=== PATIENT | female | born 1950 | race African-American/Black ===

== ENCOUNTER 2018-09-29 08:37 | Inpatient (IN) | payer MEDICARE, MEDICAID ==
[~2018-09-29] VITALS: Ht 167.6 cm; Wt 72.6 kg
[2018-09-29 08:40] VITALS: BP 168/90
--- NOTE | 2018-09-29 09:07 | Emergency Room Report ---
History of Present Illness General Chief Complaint: Lower Extremity Injury Source: Patient, EMS Present Illness HPI Patient present with complaints of pain to the right hip Reports that she fell 2 days ago at [facility] Has not been seen for this fall Pain is worse with standing or walking Denies any chest pain or shortness of breath Denies any fevers or chills pain is localized to the right side Denies any rash Allergies: Coded Allergies: AMOXICILLIN (Unverified Allergy, Unknown, 09/29/18) Patient History Past Medical History: see triage record Pertinent Family History: none Reviewed Nursing Documentation: PMH: Agreed; PSxH: Agreed Nursing Documentation-PMH Hx Hypertension: Yes History Of Psychiatric Problem: Yes Review of Systems All Other Systems: negative except mentioned in HPI Physical Exam Vital Signs Date Time Temp Pulse Resp B/P (MAP) Pulse Ox O2 Delivery O2 Flow Rate FiO2 09/29/18 08:32 97.9 98 18 168/90 99 Room Air Sp02 EP Interpretation: reviewed, normal General Appearance: well appearing, no apparent distress Head: normocephalic, atraumatic Eyes: bilateral eye PERRL, bilateral eye EOMI ENT: hearing grossly normal, normal pharynx, TMs + canals normal, uvula midline Neck: full range of motion, supple, no meningismus, no bony tend Respiratory: lungs clear, normal breath sounds, no rhonchi, no respiratory distress, no retraction, no accessory muscle use Cardiovascular #1: normal peripheral pulses, regular rate, rhythm, no edema, no gallop, no JVD, no murmur Gastrointestinal: normal bowel sounds, non tender, soft, no mass, no organomegaly, non-distended, no guarding, no hernia, no pulsatile mass, no rebound Genitourinary: no CVA tenderness Musculoskeletal: other - Tender on palpation of the right inguinal region Neurologic: oriented x3, responsive, color control operator III-XII nml as tested, sensory intact Psychiatric: mood/affect normal Skin: normal color, no rash, warm/dry, palpation normal Lymphatic: normal inspection, no adenopathy Medical Decision Making Diagnostic Impression: Primary Impression: Hip fracture ER Course Given the patient's history and exam initially x-ray imaging is obtained Does show evidence of right-sided fracture Patient is not able to bear weight Given her age her comorbidities and the discomfort given the acute fracture Orthopedics is consulted Did not feel the patient will require any emergent surgical intervention however patient will be admitted for further care and therapy Labs Test 09/29/18 10:36 White Blood Count 10.8 K/UL (4.8-10.8) Red Blood Count 5.18 M/UL (4.20-5.40) Hemoglobin 15.8 G/DL (12.0-16.0) Hematocrit 48.6 % (37.0-47.0) Mean Corpuscular Volume 94 FL (80-99) Mean Corpuscular Hemoglobin 30.5 PG (27.0-31.0) Mean Corpuscular Hemoglobin Concent 32.5 G/DL (32.0-36.0) Red Cell Distribution Width 12.1 % (11.6-14.8) Platelet Count 191 K/UL (150-450) Mean Platelet Volume 8.9 FL (6.5-10.1) Neutrophils (%) (Auto) 75.6 % (45.0-75.0) Lymphocytes (%) (Auto) 16.9 % (20.0-45.0) Monocytes (%) (Auto) 6.3 % (1.0-10.0) Eosinophils (%) (Auto) 0.7 % (0.0-3.0) Basophils (%) (Auto) 0.5 % (0.0-2.0) Prothrombin Time 10.4 SEC (9.30-11.50) Prothromb Time International Ratio 1.0 (0.9-1.1) Activated Partial Thromboplast Time 27 SEC (23-33) Sodium Level 140 MMOL/L (136-145) Potassium Level 4.1 MMOL/L (3.5-5.1) Chloride Level 102 MMOL/L (98-107) Carbon Dioxide Level 25 MMOL/L (21-32) Anion Gap 14 mmol/L (5-15) Blood Urea Nitrogen 20 mg/dL (7-18) Creatinine 1.0 MG/DL (0.55-1.30) Estimat Glomerular Filtration Rate > 60 mL/min (>60) Glucose Level 339 MG/DL (74-106) Calcium Level 9.5 MG/DL (8.5-10.1) Total Bilirubin 0.7 MG/DL (0.2-1.0) Aspartate Amino Transf (AST/SGOT) 28 U/L (15-37) Alanine Aminotransferase (ALT/SGPT) 41 U/L (12-78) Alkaline Phosphatase 119 U/L (46-116) Total Creatine Kinase 162 U/L (26-308) Creatine Kinase MB 2.6 NG/ML (0.0-3.6) Creatine Kinase MB Relative Index 1.6 Troponin I 0.001 ng/mL (0.000-0.056) Total Protein 7.6 G/DL (6.4-8.2) Albumin 4.1 G/DL (3.4-5.0) Globulin 3.5 g/dL Albumin/Globulin Ratio 1.2 (1.0-2.7) EKG Diagnostic Results Rate: normal Rhythm: NSR ST Segments: no acute changes Rhythm Strip Diag. Results EP Interpretation: yes Rate: 60 Rhythm: NSR, no PVC's, no ectopy CT/MRI/US Diagnostic Results CT/MRI/US Diagnostic Results : Impression CT pelvicIMPRESSION: 1. Nondisplaced fractures of the right posterior acetabulum and inferior bony labrum. 2. Mild sigmoid diverticulosis without evidence of acute inflammation. Last Vital Signs Date Time Temp Pulse Resp B/P (MAP) Pulse Ox O2 Delivery O2 Flow Rate FiO2 09/29/18 08:40 97.9 98 18 168/90 99 Room Air Status: improved Disposition: ADMITTED INPATIENT Condition: Serious Norah Vogel DO Sep 29, 2018 09:07
--- NOTE | 2018-09-29 10:11 | Diagnostic Imaging Report ---
EXAM: CT Pelvis Without Intravenous Contrast CLINICAL HISTORY: TRAUMA TECHNIQUE: Axial computed tomography images of the pelvis without intravenous contrast. CTDI is 16.88 mGy and DLP is 497 mGy-cm. One or more of the following dose reduction techniques were used: automated exposure control, adjustment of the mA and/or kV according to patient size, use of iterative reconstruction technique. COMPARISON: No relevant prior studies available. FINDINGS: Bowel: Mild sigmoid diverticulosis without evidence of acute inflammation. No obstruction. No mucosal thickening. Appendix: No findings to suggest acute appendicitis. Intraperitoneal space: Unremarkable. No free air. No significant fluid collection. Bladder: Unremarkable. No stones. Reproductive: The uterus and ovaries are not visualized and may be surgically absent. Bones/joints: Nondisplaced fractures of the right posterior acetabulum and inferior bony labrum. No dislocation. Degenerative changes at the lumbosacral junction with disc space loss and vacuum disc phenomenon. Soft tissues: Unremarkable. Vasculature: Unremarkable. No lower abdominal aortic aneurysm. Lymph nodes: Unremarkable. No enlarged lymph nodes. IMPRESSION: 1. Nondisplaced fractures of the right posterior acetabulum and inferior bony labrum. 2. Mild sigmoid diverticulosis without evidence of acute inflammation.
[2018-09-29 11:05] LABS: BASOPHILS % (AUTO) 0.5 % (0.0-2.0); EOSINOPHILS % (AUTO) 0.7 % (0.0-3.0); HEMATOCRIT 48.6 % (37.0-47.0); HEMOGLOBIN 15.8 G/DL (12.0-16.0); LYMPHOCYTES % (AUTO) 16.9 % (20.0-45.0); MEAN CORPUSCULAR VOLUME 94 FL (80-99); MONOCYTES % (AUTO) 6.3 % (1.0-10.0); NEUTROPHILS % (AUTO) 75.6 % (45.0-75.0); PLATELET COUNT 191 K/UL (150-450); RED BLOOD COUNT 5.18 M/UL (4.20-5.40); RED CELL DISTRIBUTION WIDTH 12.1 % (11.6-14.8); WHITE BLOOD COUNT 10.8 K/UL (4.8-10.8)
[2018-09-29 11:10] LABS: ANION GAP 14 mmol/L (5-15); BLOOD UREA NITROGEN 20 mg/dL (7-18); CALCIUM 9.5 MG/DL (8.5-10.1); CARBON DIOXIDE 25 MMOL/L (21-32); CHLORIDE 102 MMOL/L (98-107); POTASSIUM 4.1 MMOL/L (3.5-5.1); SODIUM 140 MMOL/L (136-145)
[2018-09-29 11:21] VITALS: BP 137/72
[2018-09-29 11:21] LABS: ALANINE AMINOTRANSFERASE 41 U/L (12-78); ALBUMIN 4.1 G/DL (3.4-5.0); ALBUMIN/GLOBULIN RATIO 1.2 (1.0-2.7); ALKALINE PHOSPHATASE 119 U/L (46-116); ASPARTATE AMINO TRANSFERASE 28 U/L (15-37); BILIRUBIN,TOTAL 0.7 MG/DL (0.2-1.0); CKMB 2.6 NG/ML (0.0-3.6); CREATINE KINASE 162 U/L (26-308)
[2018-09-29] MEDS ORDERED: Morphine Sulfate 4mg/ml Inj (IV/IM USE ONLY) ONE (11:41)
[2018-09-29] MEDS ORDERED: Morphine Sulfate 4mg/ml Inj (IV/IM USE ONLY) IVP ONE (11:45)
[2018-09-29] MEDS ORDERED: METFORMIN HCL500 M1 ORAL (12:03)
[2018-09-29] MEDS ORDERED: VENTOLIN HFA18 GM INH (12:03)
[2018-09-29] MEDS ORDERED: ACETAMINOPHEN500 M5 PO (12:03)
[2018-09-29] MEDS ORDERED: MULTIVITAMINS1 EA14 PO (12:03)
[2018-09-29] MEDS ORDERED: SIMVASTATIN10 MG ORAL (12:03)
[2018-09-29 12:25] VITALS: BP 149/74
[2018-09-29] MEDS ORDERED: Chloraseptic Spray 20mL Bottle ORAL PRN (13:15)
[2018-09-29] MEDS: Enoxaparin 40mg Inj SUBQ SCH (13:56)
[2018-09-29] MEDS ORDERED: Guaifenesin/DM 10ml syrup ORAL PRN (15:00)
--- NOTE | 2018-09-29 15:30 | History and Physical Report ---
DATE OF ADMISSION: 09/29/2018 REASON FOR ADMISSION: Right hip pain. HISTORY OF PRESENT ILLNESS: The patient is a 68-year-old female with complaints of right hip pain after falling two days ago at [facility]. X-ray here demonstrated a nondisplaced fracture of the right posterior acetabular and inferior bony labrum. The patient in no overt distress. No chest pain, shortness of breath. No fevers or chills. Pain is localized to her right hip area. PAST MEDICAL HISTORY: None. ALLERGIES: Amoxicillin. FAMILY HISTORY: Noncontributory. REVIEW OF SYSTEMS: NEUROLOGIC: The patient denies headache, change in vision, syncope, presyncopal episodes. CARDIOVASCULAR: No current chest pain, palpitations, or angina. PULMONARY: No difficulty breathing, productive cough, sputum. GASTROINTESTINAL/GENITOURINARY: No change in urinary or bowel habits. No nausea, vomiting, diarrhea. ENDOCRINOLOGY: No night sweats, fevers, or chills. MUSCULOSKELETAL: The patient is complaining of right hip pain. PHYSICAL EXAMINATION: VITAL SIGNS: Blood pressure 168/90, pulse oximetry 99% on room air, respiratory rate 18, pulse 98, temperature 97.9. GENERAL: The patient awake, alert, not in distress. HEENT: Extraocular muscles intact. NECK: No lymphadenopathy noted. CARDIOVASCULAR: S1 and S2. No rubs or gallops. PULMONARY: Clear to auscultation bilaterally. No rales, rhonchi or wheezes. ABDOMEN: Nontender. EXTREMITIES: No edema. LABORATORY DATA: Labs none currently available to review. ASSESSMENT AND PLAN: 1. Right hip pain secondary to nondisplaced fracture of the right posterior acetabulum and inferior bony labrum. At this time, await orthopedic evaluation and recommendations. We will initiate physical therapy and outpatient placement. 2. Hypertension. We will adjust medications as deemed appropriate. 3. DVT prophylaxis with Lovenox. Awaiting home reconciliation list and will proceed accordingly. Alvin Brown MD DR: Chen JOB#: [id number] CC:
[2018-09-29] MEDS: Morphine Sulfate 2mg/ml Inj IVP PRN ×2 (15:33→23:50)
[2018-09-29 16:00] VITALS: BP 140/70
[2018-09-29] MEDS: metFORMIN 500mg tab ORAL SCH (16:53)
[2018-09-29] MEDS: NovoLOG Insulin Flexpen SUBQ SCH ×3 (16:55→20:56)
[2018-09-29 17:24] VITALS: BP 142/74
--- NOTE | 2018-09-29 18:40 | Consultation ---
History of Present Illness General Date patient seen: Sep 29, 2018 Time patient seen: 18:37 Chief Complaint: Lower Extremity Injury Present Illness HPI Patient brought in by ambulance due to L hip pain. Per pt. was recently discharged from [facility] and was walking to the parking lot but tripped over on her L hip. denies head injury. X-ray here demonstrated a nondisplaced fracture of the right posterior acetabular and inferior bony labrum. The patient in no overt distress. No chest pain, shortness of breath. No fevers or chills. Pain is localized to her right hip area. Troponin negative. Allergies: Coded Allergies: AMOXICILLIN (Unverified Allergy, Unknown, 09/29/18) Medication History Scheduled Multivitamin (Multivitamins), 1 EACH PO DAILY, (Reported) Simvastatin (Zocor), 10 MG ORAL BEDTIME, (Reported) Scheduled PRN Acetaminophen (Acetaminophen), 500 MG PO EVERY 8 HOURS PRN for For Pain, ( Reported) Albuterol Sulfate (Ventolin Hfa), 2 PUFFS INH EVERY 6 HOURS PRN for Shortness of Breath, (Reported) Miscellaneous Medications Metformin Hcl* (Metformin Hcl*), 500 MG ORAL, (Reported) Patient History Healthcare decision maker Resuscitation status Full Code Advanced Directive on File Review of Systems Constitutional: Reports: no symptoms Eye: Reports: no symptoms ENT: Reports: no symptoms Respiratory: Reports: no symptoms Cardiovascular: Reports: no symptoms Gastrointestinal: Reports: no symptoms Genitourinary: Reports: no symptoms Musculoskeletal: Reports: no symptoms Skin: Reports: no symptoms Psychiatric: Reports: no symptoms Neurological: Reports: no symptoms Endocrine: Reports: no symptoms Hematologic/Lymphatic: Reports: no symptoms Physical Exam General Appearance: no apparent distress Lines, tubes and drains: peripheral HEENT: normocephalic, atraumatic Neck: non-tender, normal alignment, supple, abnormal alignment Respiratory/Chest: chest wall non-tender, lungs clear Cardiovascular/Chest: normal peripheral pulses, normal rate, regular rhythm Abdomen: normal bowel sounds, non tender Extremities: normal range of motion, non-tender, normal inspection Skin Exam: normal pigmentation 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18 M/UL (4.20-5.40) Hemoglobin 15.8 G/DL (12.0-16.0) Hematocrit 48.6 % (37.0-47.0) H Mean Corpuscular Volume 94 FL (80-99) Mean Corpuscular Hemoglobin 30.5 PG (27.0-31.0) Mean Corpuscular Hemoglobin Concent 32.5 G/DL (32.0-36.0) Red Cell Distribution Width 12.1 % (11.6-14.8) Platelet Count 191 K/UL (150-450) Mean Platelet Volume 8.9 FL (6.5-10.1) Neutrophils (%) (Auto) 75.6 % (45.0-75.0) H Lymphocytes (%) (Auto) 16.9 % (20.0-45.0) L Monocytes (%) (Auto) 6.3 % (1.0-10.0) Eosinophils (%) (Auto) 0.7 % (0.0-3.0) Basophils (%) (Auto) 0.5 % (0.0-2.0) Prothrombin Time 10.4 SEC (9.30-11.50) Prothromb Time International Ratio 1.0 (0.9-1.1) Activated Partial Thromboplast Time 27 SEC (23-33) Sodium Level 140 MMOL/L (136-145) Potassium Level 4.1 MMOL/L (3.5-5.1) Chloride Level 102 MMOL/L (98-107) Carbon Dioxide Level 25 MMOL/L (21-32) Anion Gap 14 mmol/L (5-15) Blood Urea Nitrogen 20 mg/dL (7-18) H Creatinine 1.0 MG/DL (0.55-1.30) Estimat Glomerular Filtration Rate > 60 mL/min (>60) Glucose Level 339 MG/DL (74-106) H Calcium Level 9.5 MG/DL (8.5-10.1) Total Bilirubin 0.7 MG/DL (0.2-1.0) Aspartate Amino Transf (AST/SGOT) 28 U/L (15-37) Alanine Aminotransferase (ALT/SGPT) 41 U/L (12-78) Alkaline Phosphatase 119 U/L (46-116) H Total Creatine Kinase 162 U/L (26-308) Creatine Kinase MB 2.6 NG/ML (0.0-3.6) Creatine Kinase MB Relative Index 1.6 Troponin I 0.001 ng/mL (0.000-0.056) Total Protein 7.6 G/DL (6.4-8.2) Albumin 4.1 G/DL (3.4-5.0) Globulin 3.5 g/dL Albumin/Globulin Ratio 1.2 (1.0-2.7) Height (Feet): 5 Height (Inches): 6.00 Weight (Pounds): 160 Medications Current Medications Medications (Trade) Dose Ordered Sig/Holger Route PRN Reason Start Time Stop Time Status Last Admin Dose Admin Acetaminophen (Tylenol) 650 mg Q4H PRN ORAL Mild Pain (Pain Scale 1-3) 09/29/18 10:45 10/29/18 10:44 Atorvastatin Calcium (Lipitor) 20 mg BEDTIME ORAL 09/29/18 21:00 10/29/18 20:59 Dextrose (Dextrose 50%) 25 ml Q30M PRN IV Hypoglycemia 09/29/18 14:30 10/29/18 14:29 Dextrose (Dextrose 50%) 50 ml Q30M PRN IV Hypoglycemia 09/29/18 14:30 10/29/18 14:29 Enoxaparin Sodium (Lovenox) 40 mg Q24H SUBQ 09/29/18 12:15 10/29/18 12:14 09/29/18 13:56 Famotidine (Pepcid) 40 mg DAILY ORAL 09/30/18 09:00 10/30/18 08:59 Guaifenesin/ Dextromethorphan (Robitussin DM Syrup) 10 ml Q2H PRN ORAL For Cough 09/29/18 17:45 10/29/18 17:44 Hydralazine HCl (Apresoline) 10 mg Q4H PRN IV For High Blood Pressure 09/29/18 10:45 10/29/18 10:44 Insulin Aspart (NovoLOG) BEFORE MEALS AND HS SUBQ 09/29/18 16:30 10/29/18 16:29 09/29/18 16:55 Metformin HCl (Glucophage) 500 mg TIAC ORAL 09/29/18 16:30 10/29/18 16:29 09/29/18 16:53 Morphine Sulfate (Morphine Sulfate) 2 mg Q4H PRN IVP FOR MODERATE PAIN (4-6) 09/29/18 13:45 10/06/18 13:44 09/29/18 15:33 Ondansetron HCl (Zofran) 4 mg Q6H PRN IVP Nausea & Vomiting 09/29/18 10:45 10/29/18 10:44 09/29/18 16:30 Phenol/Menthol (Chloraseptic) 2 spray Q3H PRN ORAL sore throat 09/29/18 13:15 10/29/18 13:14 Assessment/Plan Status: stable Assessment/Plan ASSESSMENT AND PLAN: -nondisplaced fracture of the right posterior acetabulum and inferior bony labrum. -Hypertension. Plan -ok to proceed with surgery if needed, no active cardiac conditions, no risk factors, no prior cardaic history, no further risk stratification needed. Derrick Kwon MD Sep 29, 2018 18:40
[2018-09-29 20:00] VITALS: BP 134/78
[2018-09-29] MEDS: Atorvastatin 20mg tab ORAL SCH (20:55)
[2018-09-29] MEDS: Guaifenesin/DM 10ml syrup ORAL PRN (23:48)
[2018-09-30] VITALS: BP 134/76
[2018-09-30 04:00] VITALS: BP 140/80
[2018-09-30] MEDS: metFORMIN 500mg tab ORAL SCH ×3 (05:50→17:00)
[2018-09-30] MEDS: NovoLOG Insulin Flexpen SUBQ SCH ×4 (05:51→20:59)
[2018-09-30 07:26] LABS: BASOPHILS % (AUTO) 0.8 % (0.0-2.0); EOSINOPHILS % (AUTO) 1.6 % (0.0-3.0); HEMATOCRIT 37.9 % (37.0-47.0); HEMOGLOBIN 12.7 G/DL (12.0-16.0); LYMPHOCYTES % (AUTO) 34.5 % (20.0-45.0); MEAN CORPUSCULAR VOLUME 93 FL (80-99); MONOCYTES % (AUTO) 10.7 % (1.0-10.0); NEUTROPHILS % (AUTO) 52.4 % (45.0-75.0); PLATELET COUNT 164 K/UL (150-450); RED BLOOD COUNT 4.08 M/UL (4.20-5.40); RED CELL DISTRIBUTION WIDTH 11.8 % (11.6-14.8); WHITE BLOOD COUNT 6.4 K/UL (4.8-10.8)
[2018-09-30 07:32] LABS: ANION GAP 7 mmol/L (5-15); BLOOD UREA NITROGEN 17 mg/dL (7-18); CALCIUM 8.6 MG/DL (8.5-10.1); CARBON DIOXIDE 30 MMOL/L (21-32); CHLORIDE 104 MMOL/L (98-107); CREATININE 0.8 MG/DL (0.55-1.30); POTASSIUM 3.7 MMOL/L (3.5-5.1); SODIUM 141 MMOL/L (136-145)
[2018-09-30 08:00] VITALS: BP 122/75
[2018-09-30] MEDS: Morphine Sulfate 2mg/ml Inj IVP PRN ×4 (08:42→20:54)
--- NOTE | 2018-09-30 10:56 | Nephrology Progress Note ---
Assessment/Plan Assessment/Plan A/P 1) Right Hip Pain -nondisplaced fracture of the right posterior acetabular and inferior bony labrum - PT and SNF being arranged - await Ortho reccs 2) DVT Prophylaxis with lovenox 3) DM- metformin and accuchecks with ISS Subjective Date patient seen: Sep 30, 2018 Time patient seen: 10:53 ROS Limited/Unobtainable: No Allergies: Coded Allergies: AMOXICILLIN (Unverified Allergy, Unknown, 09/29/18) Subjective Patient c/o right hip pain Objective Last 24 Hour Vital Signs Date Time Temp Pulse Resp B/P (MAP) Pulse Ox O2 Delivery O2 Flow Rate FiO2 09/30/18 09:00 Room Air 09/30/18 08:00 98.1 72 20 122/75 (91) 100 09/30/18 04:00 97.7 65 18 140/80 (100) 100 09/30/18 00:00 98.1 79 19 134/76 (95) 99 09/29/18 21:59 Room Air 09/29/18 20:00 97.7 86 18 134/78 (96) 100 09/29/18 17:24 98.2 89 20 142/74 (96) 100 09/29/18 16:00 98.0 80 20 140/70 (93) 100 09/29/18 12:30 Room Air 09/29/18 12:25 98.7 84 20 149/74 (99) 100 09/29/18 11:50 98.5 94 18 137/72 99 Room Air 09/29/18 11:21 98.5 94 18 137/72 99 Room Air Intake and Output 09/29/18 09/30/18 19:00 07:00 Intake Total 360 ml 400 ml Output Total 600 ml Balance -240 ml 400 ml Intake Oral 360 ml 400 ml Output Urine Total 600 ml # Voids 1 Laboratory Tests 09/30/18 05:40: White Blood Count 6.4, Red Blood Count 4.08L, Hemoglobin 12.7, Hematocrit 37.9, Mean Corpuscular Volume 93, Mean Corpuscular Hemoglobin 31.1H, Mean Corpuscular Hemoglobin Concent 33.5, Red Cell Distribution Width 11.8, Platelet Count 164, Mean Platelet Volume 8.3, Neutrophils (%) (Auto) 52.4, Lymphocytes (%) (Auto) 34.5, Monocytes (%) (Auto) 10.7H, Eosinophils (%) (Auto) 1.6, Basophils (%) ( Auto) 0.8, Sodium Level 141, Potassium Level 3.7, Chloride Level 104, Carbon Dioxide Level 30, Anion Gap 7, Blood Urea Nitrogen 17, Creatinine 0.8, Estimat Glomerular Filtration Rate > 60, Glucose Level 234#H, Calcium Level 8.6 Height (Feet): 5 Height (Inches): 6.00 Weight (Pounds): 160 General Appearance: WD/WN, alert, mild distress EENT: normal ENT inspection Neck: normal alignment, supple Cardiovascular: normal rate, regular rhythm Respiratory/Chest: lungs clear, normal breath sounds Abdomen: non tender, soft Edema: no edema noted Arm (L), no edema noted Arm (R), no edema noted Leg (L), no edema noted Leg (R), no edema noted Pedal (L), no edema noted Pedal (R), no edema noted Generalized Alvin Brown MD Sep 30, 2018 10:56
[2018-09-30] MEDS: Enoxaparin 40mg Inj SUBQ SCH (11:25)
[2018-09-30 11:52] VITALS: BP 125/76
[2018-09-30 12:44] LABS: APPEARANCE,URINE CLEAR; BILIRUBIN, URINE NEGATIVE (NEGATIVE); GLUCOSE, URINE (UA) 4+ (NEGATIVE); KETONES,URINE NEGATIVE (NEGATIVE); LEUKOCYTE ESTERASE ,URINE 1+ (NEGATIVE); NITRITE,URINE NEGATIVE (NEGATIVE); PH,URINE 5 (4.5-8.0); PROTEIN,URINE 1+ (NEGATIVE); UROBILINOGEN,URINE NORMAL MG/DL (0.0-1.0)
[2018-09-30 12:58] LABS: COLOR,URINE YELLOW
[2018-09-30] MEDS: Guaifenesin/DM 10ml syrup ORAL PRN ×2 (14:14→20:53)
--- NOTE | 2018-09-30 14:19 | Cardiology Report ---
APPROVED REPORT EKG Measurement Heart [id number] [place] [id number] [id number] Normal sinus rhythm RV conduction delay [facility] ECG
[2018-09-30 16:00] VITALS: BP 122/72
--- NOTE | 2018-09-30 16:22 | Cardiology Progress Note ---
Assessment/Plan Status: stable Assessment/Plan Assessment/Plan Status: stable Assessment/Plan ASSESSMENT AND PLAN: -nondisplaced fracture of the right posterior acetabulum and inferior bony labrum. -Hypertension. Plan -ok to proceed with surgery if needed, no active cardiac conditions, no risk factors, no prior cardaic history, no further risk stratification needed. Subjective Cardiovascular: Reports: no symptoms Respiratory: Reports: no symptoms Gastrointestinal/Abdominal: Reports: no symptoms Genitourinary: Reports: no symptoms Subjective No acute events, vitals stable, complain of hip pain, awaiting surgery recs Objective Last 24 Hour Vital Signs Date Time Temp Pulse Resp B/P (MAP) Pulse Ox O2 Delivery O2 Flow Rate FiO2 09/30/18 16:00 99.3 68 20 122/72 (89) 100 09/30/18 11:52 98.3 68 20 125/76 (92) 98 09/30/18 09:00 Room Air 09/30/18 08:00 98.1 72 20 122/75 (91) 100 09/30/18 04:00 97.7 65 18 140/80 (100) 100 09/30/18 00:00 98.1 79 19 134/76 (95) 99 09/29/18 21:59 Room Air 09/29/18 20:00 97.7 86 18 134/78 (96) 100 09/29/18 17:24 98.2 89 20 142/74 (96) 100 General Appearance: no apparent distress, alert EENT: normal ENT inspection, TMs normal, pharynx normal Neck: non-tender, normal inspection, no JVD Rhythm: NSR Cardiovascular: normal peripheral pulses, normal rate Respiratory/Chest: chest wall non-tender, lungs clear, normal breath sounds Abdomen: normal bowel sounds, non tender, soft Extremities: normal range of motion, non-tender, normal inspection 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, no motor/sensory deficits Intake and Output 09/29/18 09/30/18 18:59 06:59 Intake Total 360 ml 400 ml Output Total 600 ml Balance -240 ml 400 ml Intake Oral 360 ml 400 ml Output Urine Total 600 ml # Voids 1 Laboratory Tests Test 09/30/18 05:40 09/30/18 12:20 White Blood Count 6.4 K/UL (4.8-10.8) Red Blood Count 4.08 M/UL (4.20-5.40) L Hemoglobin 12.7 G/DL (12.0-16.0) Hematocrit 37.9 % (37.0-47.0) Mean Corpuscular Volume 93 FL (80-99) Mean Corpuscular Hemoglobin 31.1 PG (27.0-31.0) H Mean Corpuscular Hemoglobin Concent 33.5 G/DL (32.0-36.0) Red Cell Distribution Width 11.8 % (11.6-14.8) Platelet Count 164 K/UL (150-450) Mean Platelet Volume 8.3 FL (6.5-10.1) Neutrophils (%) (Auto) 52.4 % (45.0-75.0) Lymphocytes (%) (Auto) 34.5 % (20.0-45.0) Monocytes (%) (Auto) 10.7 % (1.0-10.0) H Eosinophils (%) (Auto) 1.6 % (0.0-3.0) Basophils (%) (Auto) 0.8 % (0.0-2.0) Sodium Level 141 MMOL/L (136-145) Potassium Level 3.7 MMOL/L (3.5-5.1) Chloride Level 104 MMOL/L (98-107) Carbon Dioxide Level 30 MMOL/L (21-32) Anion Gap 7 mmol/L (5-15) Blood Urea Nitrogen 17 mg/dL (7-18) Creatinine 0.8 MG/DL (0.55-1.30) Estimat Glomerular Filtration Rate > 60 mL/min (>60) Glucose Level 234 MG/DL (74-106) #H Calcium Level 8.6 MG/DL (8.5-10.1) Urine Color Yellow Urine Appearance Clear Urine pH 5 (4.5-8.0) Urine Specific [place] 1.025 (1.005-1.035) Urine Protein 1+ (NEGATIVE) H Urine Glucose (UA) 4+ (NEGATIVE) H Urine Ketones Negative (NEGATIVE) Urine Blood Negative (NEGATIVE) Urine Nitrite Negative (NEGATIVE) Urine Bilirubin Negative (NEGATIVE) Urine Urobilinogen Normal MG/DL (0.0-1.0) Urine Leukocyte Esterase 1+ (NEGATIVE) H Urine RBC 0-2 /HPF (0 - 2) Urine WBC 2-4 /HPF (0 - 2) Urine Squamous Epithelial Cells Few /LPF (NONE/OCC) Urine Bacteria Few /HPF (NONE) Derrick Kwon MD Sep 30, 2018 16:22
[2018-09-30] MEDS: Lactulose 10gm/15ml UDC ORAL SCH (17:54)
[2018-09-30 20:00] VITALS: BP 140/79
[2018-09-30] MEDS: Atorvastatin 20mg tab ORAL SCH (20:49)
[2018-09-30] MEDS: Miconazole Vag Cr 45gm Tube (100mg per applicator) VAGIN SCH (21:00)
[2018-10-01] VITALS: BP 133/75
[2018-10-01 04:00] VITALS: BP 120/74
[2018-10-01] MEDS: NovoLOG Insulin Flexpen SUBQ SCH ×5 (06:16→21:39)
[2018-10-01] MEDS: metFORMIN 500mg tab ORAL SCH ×4 (06:20→19:09)
[2018-10-01] MEDS: Morphine Sulfate 2mg/ml Inj IVP PRN (06:21)
[2018-10-01 07:13] LABS: BASOPHILS % (AUTO) 0.8 % (0.0-2.0); EOSINOPHILS % (AUTO) 2.6 % (0.0-3.0); HEMATOCRIT 37.7 % (37.0-47.0); HEMOGLOBIN 12.4 G/DL (12.0-16.0); LYMPHOCYTES % (AUTO) 40.5 % (20.0-45.0); MEAN CORPUSCULAR VOLUME 95 FL (80-99); MONOCYTES % (AUTO) 8.7 % (1.0-10.0); NEUTROPHILS % (AUTO) 47.3 % (45.0-75.0); PLATELET COUNT 163 K/UL (150-450); RED BLOOD COUNT 3.98 M/UL (4.20-5.40); RED CELL DISTRIBUTION WIDTH 12.2 % (11.6-14.8); WHITE BLOOD COUNT 6.4 K/UL (4.8-10.8)
[2018-10-01 07:22] LABS: ANION GAP 7 mmol/L (5-15); BLOOD UREA NITROGEN 16 mg/dL (7-18); CALCIUM 8.7 MG/DL (8.5-10.1); CARBON DIOXIDE 30 MMOL/L (21-32); CHLORIDE 104 MMOL/L (98-107); CREATININE 0.8 MG/DL (0.55-1.30); POTASSIUM 3.8 MMOL/L (3.5-5.1); SODIUM 141 MMOL/L (136-145)
[2018-10-01 08:00] VITALS: BP 135/85
--- NOTE | 2018-10-01 09:38 | Nephrology Progress Note ---
Assessment/Plan Assessment/Plan A/P 1) Right Hip Pain -nondisplaced fracture of the right posterior acetabular and inferior bony labrum - PT and SNF being arranged - await Ortho reccs prior to discharge tomorrow 2) DVT Prophylaxis with lovenox 3) DM- metformin and accuchecks with ISS Subjective Date patient seen: Oct 01, 2018 Time patient seen: 09:38 ROS Limited/Unobtainable: No Allergies: Coded Allergies: AMOXICILLIN (Unverified Allergy, Unknown, 09/29/18) Subjective Patient c/o right hip pain but improved. Objective Last 24 Hour Vital Signs Date Time Temp Pulse Resp B/P (MAP) Pulse Ox O2 Delivery O2 Flow Rate FiO2 10/01/18 04:00 98.0 62 18 120/74 (89) 99 10/01/18 00:00 98.5 65 16 133/75 (94) 98 09/30/18 21:00 Room Air 09/30/18 20:00 98.5 74 17 140/79 (99) 100 09/30/18 16:00 99.3 68 20 122/72 (89) 100 09/30/18 11:52 98.3 68 20 125/76 (92) 98 Intake and Output 09/30/18 10/01/18 19:00 07:00 Intake Total 360 ml 120 ml Balance 360 ml 120 ml Intake Oral 360 ml 120 ml # Voids 2 1 Laboratory Tests 09/30/18 12:20: Urine Color Yellow, Urine Appearance Clear, Urine pH 5, Urine Specific [place] 1.025, Urine Protein 1+H, Urine Glucose (UA) 4+H, Urine Ketones Negative, Urine Blood Negative, Urine Nitrite Negative, Urine Bilirubin Negative, Urine Urobilinogen Normal, Urine Leukocyte Esterase 1+H, Urine RBC 0-2, Urine WBC 2-4 , Urine Squamous Epithelial Cells Few, Urine Bacteria Few 10/01/18 04:40: White Blood Count 6.4, Red Blood Count 3.98L, Hemoglobin 12.4, Hematocrit 37.7, Mean Corpuscular Volume 95, Mean Corpuscular Hemoglobin 31.1H, Mean Corpuscular Hemoglobin Concent 32.8, Red Cell Distribution Width 12.2, Platelet Count 163, Mean Platelet Volume 7.5, Neutrophils (%) (Auto) 47.3, Lymphocytes (%) (Auto) 40.5, Monocytes (%) (Auto) 8.7, Eosinophils (%) (Auto) 2.6, Basophils (%) (Auto ) 0.8, Sodium Level 141, Potassium Level 3.8, Chloride Level 104, Carbon Dioxide Level 30, Anion Gap 7, Blood Urea Nitrogen 16, Creatinine 0.8, Estimat Glomerular Filtration Rate > 60, Glucose Level 185H, Calcium Level 8.7 Height (Feet): 5 Height (Inches): 6.00 Weight (Pounds): 160 General Appearance: no apparent distress, alert EENT: normal ENT inspection Neck: normal alignment, supple Cardiovascular: normal rate, regular rhythm Respiratory/Chest: lungs clear, normal breath sounds Abdomen: non tender, soft Edema: no edema noted Arm (L), no edema noted Arm (R), no edema noted Leg (L), no edema noted Leg (R), no edema noted Pedal (L), no edema noted Pedal (R), no edema noted Generalized Alvin Brown MD Oct 01, 2018 09:38
[2018-10-01] MEDS: Lactulose 10gm/15ml UDC ORAL SCH ×3 (09:49→17:23)
[2018-10-01] MEDS: Norco 5mg/325mg tab ORAL PRN ×3 (11:46→23:11)
[2018-10-01] MEDS: Analgesic Balm 15gm TOPIC SCH ×5 (11:47→21:37)
[2018-10-01] MEDS: Enoxaparin 40mg Inj SUBQ SCH (11:58)
[2018-10-01 12:00] VITALS: BP 149/79
[2018-10-01 16:00] VITALS: BP 143/81
[2018-10-01 20:00] VITALS: BP 126/71
--- NOTE | 2018-10-01 20:15 | Consultation ---
DATE OF CONSULTATION: 09/29/2018 "NOTE: INCOMPLETE DICTATION" CONSULTING PHYSICIAN: Akil Paris M.D. HISTORY OF PRESENT ILLNESS: The patient is a pleasant 68-year-old female, who subsequently had a fall and . Akil Paris M.D. DR: JAMILAH JOB#: [id number] CC:
[2018-10-01] MEDS: Atorvastatin 20mg tab ORAL SCH (21:00)
--- NOTE | 2018-10-01 21:00 | Progress Note ---
DATE: 10/01/2018 SUBJECTIVE: The patient had no issues overnight. Her pain is pretty well managed. She has not gotten on physical therapy as of yet. PHYSICAL EXAMINATION: The patient is alert and oriented. She has been resting comfortably in bed. Right hip examination shows pain with internal and external rotation. Positive heel strike. Posterior calf is soft. Neurovascularly, she is normal. ASSESSMENT: Right posterior wall anterior column pelvic fracture. DISCUSSION: At this point, what we are going to do is go ahead and begin PT and OT and work on disposition planning. She was instructed on appropriate precautions for decubitus ulcers as well as DVT. At this point, the fracture is minimally displaced, therefore not indicative of operative fixation. Possible posttraumatic arthrosis was again discussed with the patient. She needs a possible hip replacement in the future if she has progressive symptoms. Akil Paris M.D. DR: EMMANUEL JOB#: [id number] CC:
--- NOTE | 2018-10-01 21:00 | Consultation ---
DATE OF CONSULTATION: 09/29/2018 ORTHOPEDIC CONSULTATION HISTORY OF PRESENT ILLNESS: The patient is a pleasant 68-year-old female, who previously was a patient several years ago. She reports that she had some abdominal complaints. She was seen at [facility]. She was getting out of the parking lot when she slipped and fell. Subsequently, was evaluated at [facility] for the abdominal complaints, but was discharged with the diagnosis of UTI. She had significant pain and discomfort in the right hip, presented to [facility] where imaging study showed a pelvic fracture. She was admitted for pain management. Orthopedic consultation obtained for further care and recommendation. The patient does have pain in the right hip, particularly weightbearing. Otherwise, she is doing relatively well. Her abdominal symptoms have improved. PAST MEDICAL HISTORY: Reviewed from the intake chart. PAST SURGICAL HISTORY: Reviewed from the intake chart. MEDICATIONS: Reviewed from the intake chart. PHYSICAL EXAMINATION: GENERAL: The patient is alert and oriented. She is resting comfortably in exam bed. VITAL SIGNS: Afebrile. Stable vital signs. EXTREMITIES: Right hip examination shows pain with internal and external rotation. Positive heel strike. Posterior calf is soft. Neurovascular exam is normal. DIAGNOSTIC DATA: CT scan of the hip shows what appears to be a fracture through the posterior wall, nondisplaced, extending into the anterior wall. ASSESSMENT: Nondisplaced anterior and posterior wall fracture. DISCUSSION: At this point, this is a nondisplaced fracture. She does have some arthrosis already in the hip joint. At this point, I recommend is toe-touch weightbearing. I discussed whether it takes approximately six weeks for the fracture to heal. At that point, if there is no displacement of the fracture fragment, if there is callus formation across the fracture, she will begin gradual weightbearing, 25% of her body weight over eight weeks. Risks, limitations, expectations, and complications of procedure were discussed in detail. All questions addressed. At this point, we will admit her for appropriate pain management and begin physical therapy for disposition planning. Akil Paris M.D. DR: Rylie JOB#: [id number] CC:
--- NOTE | 2018-10-01 21:15 | Progress Note ---
DATE: 10/01/2018 SUBJECTIVE: The patient had no issues overnight. She is resting comfortably at this time in bed. She feels like her pain has improved. PHYSICAL EXAMINATION: GENERAL: The patient is oriented and alert. She is resting comfortably on exam bed. VITAL SIGNS: Afebrile. Stable vital signs. ABDOMEN: Bowel sounds normal. No evidence of decubitus ulcer. EXTREMITIES: Posterior calf is soft. ASSESSMENT: Right pelvic fracture. DISCUSSION: At this point, there is a nondisplaced pelvic fracture. PT/OT will work on disposition planning. She lives in therefore, I think it would probably be safe for her to go to the senior care, it will be six weeks until the fracture heals. At that point, we can begin gradual weightbearing. Risks, limitations, expectations, complication, and course of treatment discussed in detail. All questions were addressed. Possible posttraumatic arthrosis also discussed with the patient. Akil Paris M.D. DR: JAMILAH JOB#: [id number] CC: KIRIT
[2018-10-01] MEDS: Miconazole Vag Cr 45gm Tube (100mg per applicator) VAGIN SCH (21:37)
--- NOTE | 2018-10-01 22:33 | Cardiology Progress Note ---
Assessment/Plan Status: stable Assessment/Plan Assessment/Plan Status: stable Assessment/Plan ASSESSMENT AND PLAN: -nondisplaced fracture of the right posterior acetabulum and inferior bony labrum. -Hypertension. Plan -ok to proceed with surgery if needed, no active cardiac conditions, no risk factors, no prior cardiac history, no further risk stratification needed. Non operative management Ok to discharge home outpatient ischemia evaluation Subjective Cardiovascular: Reports: no symptoms Respiratory: Reports: no symptoms Gastrointestinal/Abdominal: Reports: no symptoms Genitourinary: Reports: no symptoms Subjective No acute events, vitals stable, complain of hip pain, awaiting surgery recs - non operative management Objective Last 24 Hour Vital Signs Date Time Temp Pulse Resp B/P (MAP) Pulse Ox O2 Delivery O2 Flow Rate FiO2 10/01/18 20:00 98.3 65 19 126/71 (89) 100 10/01/18 19:39 98.3 10/01/18 16:00 98.1 74 18 143/81 (101) 98 10/01/18 12:00 98.9 86 18 149/79 (102) 100 10/01/18 09:00 Room Air 10/01/18 08:00 98.4 93 17 135/85 (102) 100 10/01/18 04:00 98.0 62 18 120/74 (89) 99 10/01/18 00:00 98.5 65 16 133/75 (94) 98 General Appearance: no apparent distress, alert EENT: PERRL/EOMI, normal ENT inspection, TMs normal, pharynx normal Neck: non-tender, normal alignment, supple, normal inspection, no JVD Rhythm: NSR, SB Cardiovascular: normal peripheral pulses, normal rate, regular rhythm, regularly irregular Respiratory/Chest: chest wall non-tender, lungs clear, normal breath sounds Abdomen: normal bowel sounds, non tender, soft, no organomegaly Extremities: normal range of motion, non-tender, normal inspection, no calf tenderness, no swelling 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 Intake and Output 09/30/18 10/01/18 19:00 07:00 Intake Total 360 ml 120 ml Balance 360 ml 120 ml Intake Oral 360 ml 120 ml # Voids 2 1 Laboratory Tests Test 10/01/18 04:40 White Blood Count 6.4 K/UL (4.8-10.8) Red Blood Count 3.98 M/UL (4.20-5.40) L Hemoglobin 12.4 G/DL (12.0-16.0) Hematocrit 37.7 % (37.0-47.0) Mean Corpuscular Volume 95 FL (80-99) Mean Corpuscular Hemoglobin 31.1 PG (27.0-31.0) H Mean Corpuscular Hemoglobin Concent 32.8 G/DL (32.0-36.0) Red Cell Distribution Width 12.2 % (11.6-14.8) Platelet Count 163 K/UL (150-450) Mean Platelet Volume 7.5 FL (6.5-10.1) Neutrophils (%) (Auto) 47.3 % (45.0-75.0) Lymphocytes (%) (Auto) 40.5 % (20.0-45.0) Monocytes (%) (Auto) 8.7 % (1.0-10.0) Eosinophils (%) (Auto) 2.6 % (0.0-3.0) Basophils (%) (Auto) 0.8 % (0.0-2.0) Sodium Level 141 MMOL/L (136-145) Potassium Level 3.8 MMOL/L (3.5-5.1) Chloride Level 104 MMOL/L (98-107) Carbon Dioxide Level 30 MMOL/L (21-32) Anion Gap 7 mmol/L (5-15) Blood Urea Nitrogen 16 mg/dL (7-18) Creatinine 0.8 MG/DL (0.55-1.30) Estimat Glomerular Filtration Rate > 60 mL/min (>60) Glucose Level 185 MG/DL (74-106) H Calcium Level 8.7 MG/DL (8.5-10.1) Derrick Kwon MD Oct 01, 2018 22:33
[2018-10-02] VITALS: BP 130/68
[2018-10-02 04:00] VITALS: BP 131/70
[2018-10-02] MEDS: Norco 5mg/325mg tab ORAL PRN ×3 (06:33→16:35)
[2018-10-02] MEDS: metFORMIN 500mg tab ORAL SCH ×3 (06:33→16:30)
[2018-10-02] MEDS: NovoLOG Insulin Flexpen SUBQ SCH ×4 (06:34→21:00)
[2018-10-02 08:00] VITALS: BP 143/73
[2018-10-02] MEDS: Analgesic Balm 15gm TOPIC SCH ×4 (08:55→21:14)
[2018-10-02] MEDS: Lactulose 10gm/15ml UDC ORAL SCH ×3 (09:00→17:47)
--- NOTE | 2018-10-02 09:57 | Nephrology Progress Note ---
Assessment/Plan Assessment/Plan A/P 1) Right Hip Pain -nondisplaced pelvic fracture. PT/OT will work on disposition planning. DC patient to intermediate, it will be six weeks until the fracture heals. At that point, begin gradual weightbearing. 2) DVT Prophylaxis with lovenox 3) DM- metformin and accuchecks with ISS Subjective Date patient seen: Oct 02, 2018 Time patient seen: 09:54 ROS Limited/Unobtainable: No Allergies: Coded Allergies: AMOXICILLIN (Unverified Allergy, Unknown, 09/29/18) Subjective Patient c/o right hip pain but improved. DC pending Objective Last 24 Hour Vital Signs Date Time Temp Pulse Resp B/P (MAP) Pulse Ox O2 Delivery O2 Flow Rate FiO2 10/02/18 07:03 98.3 10/02/18 04:00 98.3 63 18 131/70 (90) 98 10/02/18 00:00 98.2 67 18 130/68 (88) 99 10/01/18 21:00 Room Air 10/01/18 20:00 98.3 65 19 126/71 (89) 100 10/01/18 16:00 98.1 74 18 143/81 (101) 98 10/01/18 12:00 98.9 86 18 149/79 (102) 100 Intake and Output 10/01/18 10/02/18 19:00 07:00 Intake Total 1200 ml 400 ml Balance 1200 ml 400 ml Intake Oral 1200 ml 400 ml # Voids 1 Height (Feet): 5 Height (Inches): 6.00 Weight (Pounds): 160 General Appearance: no apparent distress, alert EENT: normal ENT inspection, TMs normal Cardiovascular: normal rate, regular rhythm Respiratory/Chest: lungs clear, normal breath sounds Abdomen: non tender, soft Edema: no edema noted Arm (L), no edema noted Arm (R), no edema noted Leg (L), no edema noted Leg (R), no edema noted Pedal (L), no edema noted Pedal (R), no edema noted Generalized Alvin Brown MD Oct 02, 2018 09:57
[2018-10-02 12:00] VITALS: BP 150/84
[2018-10-02] MEDS: Enoxaparin 40mg Inj SUBQ SCH (12:12)
[2018-10-02 16:00] VITALS: BP 150/73
[2018-10-02] MEDS ORDERED: Loperamide 2mg cap ORAL SCH (19:00)
[2018-10-02 20:39] VITALS: BP 132/73
[2018-10-02] MEDS: Atorvastatin 20mg tab ORAL SCH (21:00)
[2018-10-02] MEDS: Miconazole Vag Cr 45gm Tube (100mg per applicator) VAGIN SCH (21:14)
--- NOTE | 2018-10-02 22:05 | Cardiology Progress Note ---
Assessment/Plan Status: stable Assessment/Plan Assessment/Plan Status: stable Assessment/Plan ASSESSMENT AND PLAN: -nondisplaced fracture of the right posterior acetabulum and inferior bony labrum. -Hypertension. Plan -ok to proceed with surgery if needed, no active cardiac conditions, no risk factors, no prior cardiac history, no further risk stratification needed. Non operative management Ok to discharge home outpatient ischemia evaluation Pain control incentive spirometry Physical therapy Subjective Cardiovascular: Reports: no symptoms Respiratory: Reports: no symptoms Gastrointestinal/Abdominal: Reports: no symptoms Genitourinary: Reports: no symptoms Subjective No acute events, vitals stable, complain of hip pain, awaiting surgery recs - non operative management, refused sugar accuchecks or insulin, Objective Last 24 Hour Vital Signs Date Time Temp Pulse Resp B/P (MAP) Pulse Ox O2 Delivery O2 Flow Rate FiO2 10/02/18 20:39 98.5 66 17 132/73 (92) 98 10/02/18 16:00 98.6 68 19 150/73 (98) 99 10/02/18 12:00 98.7 74 19 150/84 (106) 97 10/02/18 09:00 Room Air 10/02/18 08:00 98.3 79 18 143/73 (96) 98 10/02/18 07:03 98.3 10/02/18 04:00 98.3 63 18 131/70 (90) 98 10/02/18 00:00 98.2 67 18 130/68 (88) 99 General Appearance: no apparent distress, alert EENT: PERRL/EOMI, normal ENT inspection, TMs normal, pharynx normal Neck: non-tender, normal alignment, supple, normal inspection, no JVD Rhythm: NSR Cardiovascular: normal peripheral pulses, normal rate, regular rhythm Respiratory/Chest: chest wall non-tender, lungs clear Abdomen: normal bowel sounds, non tender, soft, no organomegaly, no mass Extremities: normal range of motion, non-tender, normal inspection 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
[2018-10-03] VITALS: BP 128/67
[2018-10-03 04:00] VITALS: BP 133/70
[2018-10-03] MEDS: metFORMIN 500mg tab ORAL SCH ×3 (06:15→12:31)
[2018-10-03] MEDS: Analgesic Balm 15gm TOPIC SCH ×2 (06:20→12:25)
[2018-10-03] MEDS: NovoLOG Insulin Flexpen SUBQ SCH ×2 (06:21→11:30)
[2018-10-03 08:00] VITALS: BP 127/91
[2018-10-03] MEDS: Lactulose 10gm/15ml UDC ORAL SCH ×2 (08:15→12:26)
[2018-10-03] MEDS: Norco 5mg/325mg tab ORAL PRN ×2 (08:17→12:30)
--- NOTE | 2018-10-03 09:37 | Nephrology Progress Note ---
Assessment/Plan Assessment/Plan A/P 1) Right Hip Pain -nondisplaced pelvic fracture. DC patient to correction today, it will be six weeks until the fracture heals. At that point, begin gradual weightbearing. 2) DVT Prophylaxis with lovenox 3) DM- metformin and accuchecks with ISS Subjective Date patient seen: Oct 03, 2018 Time patient seen: 09:36 ROS Limited/Unobtainable: No Allergies: Coded Allergies: AMOXICILLIN (Unverified Allergy, Unknown, 09/29/18) Subjective Patient c/o right hip pain but improved and set for DC Objective Last 24 Hour Vital Signs Date Time Temp Pulse Resp B/P (MAP) Pulse Ox O2 Delivery O2 Flow Rate FiO2 10/03/18 04:00 98.4 63 17 133/70 (91) 99 10/03/18 00:00 98.4 61 16 128/67 (87) 98 10/02/18 21:00 Room Air 10/02/18 20:39 98.5 66 17 132/73 (92) 98 10/02/18 16:00 98.6 68 19 150/73 (98) 99 10/02/18 12:00 98.7 74 19 150/84 (106) 97 Intake and Output 10/02/18 10/03/18 19:00 07:00 Intake Total 1000 ml Balance 1000 ml Intake Oral 1000 ml # Voids 3 # Bowel Movements 2 Height (Feet): 5 Height (Inches): 6.00 Weight (Pounds): 160 General Appearance: no apparent distress, alert EENT: normal ENT inspection Neck: normal alignment, supple Cardiovascular: normal rate, regular rhythm Respiratory/Chest: lungs clear, normal breath sounds Abdomen: non tender, soft Edema: no edema noted Arm (L), no edema noted Arm (R), no edema noted Leg (L), no edema noted Leg (R), no edema noted Pedal (L), no edema noted Pedal (R), no edema noted Generalized Alvin Brown MD Oct 03, 2018 09:37
--- NOTE | 2018-10-03 09:39 | Discharge Instructions ---
Discharge Instructions Discharge Instructions Services at Discharge: day care Diet: 2 GM sodium (low sodium) Resume Normal Activity?: Yes Activity: other - follow PT/OT orders Follow Up Orders DC to SNF/Rehab today and follow PT/OT orders For Congestive Heart Failure Reminder Report to your physician any weight gain of 5 pounds or more in one week. Alvin Brown MD Oct 03, 2018 09:39
[2018-10-03 12:00] VITALS: BP 124/74
[2018-10-03] MEDS: Enoxaparin 40mg Inj SUBQ SCH (12:26)
--- NOTE | 2018-10-04 08:54 | Discharge Summary ---
Discharge Summary Discharge Summary _ DATE OF ADMISSION: 09/29/2018 DATE OF DISCHARGE: 10/03/2018 DISCHARGED BY: Dr. Alvin Brown CONSULTANTS: Dr. Akil Kwon BRIEF HOSPITAL COURSE: Patient is a 68-year-old female, who presented to ED via EMS for complaints of pain to the right hip. She reported fall 2 days ago. Pain was worse with standing or walking. She denied any chest pain or shortness of breath. Pain was localized to the right side. She has medical history significant for hypertension. On evaluation at ED, blood pressure was elevated 168/90. Patient was unable to bear weight. Pelvic CT showed a nondisplaced fracture of the right posterior acetabulum and inferior bony labrum. Blood work did not show any leukocytosis, hemoglobin and hematocrit were stable. Electrolytes were normal. Troponin was negative. EKG was in normal sinus rhythm with no acute changes. She was then admitted for evaluation of right hip fracture. She was placed on Lovenox for DVT prophylaxis. [employer] was consulted for clearance if surgery would be needed. She was cleared for surgery if needed. Orthopedic was consulted. CT scan of the hip was reviewed. Patient has a minimally displaced fracture, not indicative of operative fixation. She has some arthrosis of the hip joint. She was recommended physical therapy as it takes approximately 6 weeks for the fracture to heal. At that point, she can begin gradual weightbearing. She was given pain management. She was given DVT and decubitus precautions. She was eventually discharged to [facility] to continue physical therapy rehabilitation. FINAL DIAGNOSES: Right hip pain secondary to nondisplaced pelvic fracture Diabetes mellitus DISPOSITION: Patient was discharged to a SNF. DISCHARGE MEDICATIONS: Refer to Discharge Medication List. I have been assigned to dictate discharge summary on this account, and I was not involved in the patient's management. Noemy Lopes NP Oct 04, 2018 08:54
== END 2018-10-03 14:30 | disposition short-term general hospital (02) | DRG 536 ==
LOC: EDBD 08:37 → EMR 09:05 → 3E 11:04 → EDBEDREQ 11:38
DX: S32.491A Other specified fracture of right acetabulum, initial encounter for closed fracture (principal); S73.191A Other sprain of right hip, initial encounter; W01.0XXA Fall on same level from slipping, tripping and stumbling without subsequent striking against object, initial encounter; Y92.481 Parking lot as the place of occurrence of the external cause; I10 Essential (primary) hypertension; M16.11 Unilateral primary osteoarthritis, right hip; E11.9 Type 2 diabetes mellitus without complications; Z88.1 Allergy status to other antibiotic agents
CPT/HCPCS: 36415; 72192; 80048; 80053; 81003; 82550; 82553; 82962; 84484; 85025; 85610; 85730; 93005; 96365; 96367; 99285; J1815; J2405

== ENCOUNTER 2019-02-01 11:54 | Emergency (ER) | payer MEDICARE, MEDICAID ==
[~2019-02-01] VITALS: Ht 170.2 cm; Wt 72.6 kg
[~2019-02-01 11:54] MED LIST: ACETAMINOPHEN500 M5 PO; METFORMIN HCL500 M1 ORAL; MULTIVITAMINS1 EA14 PO; SIMVASTATIN10 MG ORAL; VENTOLIN HFA18 GM INH
[2019-02-01 12:11] VITALS: BP 160/81
--- NOTE | 2019-02-01 12:26 | Emergency Room Report ---
History of Present Illness General Chief Complaint: Headache Source: Patient Present Illness HPI 68-year-old female with history of hypertension, diabetes currently Trulicity and metformin, hyperlipidemia here complaining of headache and dizziness x1 week. Patient reports that she felt dizzy 3 days ago fell and hit her head and lost consciousness. Reports alcohol consumption but denies drinking on a daily basis. She is rating her pain 10 out of 10, posterior and left lateral, with dizziness however denies blurred vision, nausea vomiting. She is delayed in response and easily distracted with her responses. Has drug use and smoking. She reports she took Motrin today and felt better. Is concerned about her passing out a few days ago. Not taking any blood pressure medication since March of last year as her doctor at told her to stop the blood pressure medication. Patient has a blood pressure of 160/80 today. Has recently had a surgery but has not been following up with a primary care provider. Also complains of sharp pain in her chest that is intermittent and 5 out of 10 starting yesterday. Denies S OB, abdominal pain, urinary complaints. Notes that she checks her glucose on daily basis. Allergies: Coded Allergies: AMOXICILLIN (Unverified Allergy, Unknown, 02/01/19) CODEINE (Verified Allergy, Unknown, 02/01/19) Patient History Past Medical History: see triage record Past Surgical History: unable to obtain Pertinent Family History: none Last Menstrual Period: MENOPAUSE Now: No Immunizations: UTD Reviewed Nursing Documentation: PMH: Agreed; PSxH: Agreed Nursing Documentation-PMH Past Medical History: No History, Except For Hx Cardiac Problems: Yes Hx Hypertension: Yes Hx Diabetes: Yes Hx Cancer: No Hx Gastrointestinal Problems: No Hx Neurological Problems: No Review of Systems All Other Systems: negative except mentioned in HPI Physical Exam Vital Signs Date Time Temp Pulse Resp B/P (MAP) Pulse Ox O2 Delivery O2 Flow Rate FiO2 02/01/19 11:58 98.2 86 16 160/81 96 Room Air Sp02 EP Interpretation: reviewed, normal General Appearance: no apparent distress, alert Head: normocephalic, atraumatic Eyes: bilateral eye normal inspection, bilateral eye PERRL ENT: normal ENT inspection, hearing grossly normal, normal pharynx Neck: normal inspection, full range of motion, supple, no bony tend Respiratory: normal inspection, lungs clear, no rhonchi, no respiratory distress, no retraction, no wheezing Cardiovascular #1: normal inspection, regular rate, rhythm, no edema, no JVD, no murmur, normal capillary refill Cardiovascular #2: 2+ carotid (R), 2+ carotid (L) Gastrointestinal: normal inspection, non tender, soft, no guarding Rectal: deferred Genitourinary: no CVA tenderness Musculoskeletal: normal inspection, back normal Neurologic: alert, oriented x3, responsive, sensory intact, normal gait, speech normal Psychiatric: normal inspection, judgement/insight normal, memory normal Skin: normal inspection, normal color, no rash, warm/dry Lymphatic: normal inspection, no adenopathy Medical Decision Making PA Attestation All my diagnosis and treatment plans were reviewed ad discussed with my supervising physician Dr. Vogel Diagnostic Impression: Primary Impression: PCP dependence Additional Impressions: HTN (hypertension) UTI (urinary tract infection) ER Course 68-year-old female with history of hypertension, diabetes currently Trulicity and metformin, hyperlipidemia here complaining of headache and dizziness x1 week. Patient reports that she felt dizzy 3 days ago fell and hit her head and lost consciousness. Reports alcohol consumption but denies drinking on a daily basis. She is rating her pain 10 out of 10, posterior and left lateral, with dizziness however denies blurred vision, nausea vomiting. She is delayed in response and easily distracted with her responses. Has drug use and smoking. She reports she took Motrin today and felt better. Is concerned about her passing out a few days ago. Not taking any blood pressure medication since March of last year as her doctor at told her to stop the blood pressure medication. Patient has a blood pressure of 160/80 today. Has recently had a surgery but has not been following up with a primary care provider. Also complains of sharp pain in her chest that is intermittent and 5 out of 10 starting yesterday. Denies S OB, abdominal pain, urinary complaints. Notes that she checks her glucose on daily basis. Ddx considered but are not limited to: cerebral hematoma, concussion, skull fracture, head contusion, htn emergency, drug use Vital signs: are WNL, pt. is afebrile H&PE are most consistent with: HTN, pcp dependence, UTI ORDERS: head CT no contrast, CBC CMP UA, tox screen, ETOH, macrobid, ibuprofen ED INTERVENTIONS: None required at this time. DISCHARGE: At this time pt. is stable for d/c to home. Will provide printed patient care instructions, and any necessary prescriptions. Care plan and follow up instructions have been discussed with the patient prior to discharge. follow up with travis Squires for blood pressure control pos leuk and WBC UA, PCP positive, marijuana pos EKG Diagnostic Results Rate: normal Rhythm: NSR ASA given to the pt in ED: No CT/MRI/US Diagnostic Results CT/MRI/US Diagnostic Results : Imaging Test Ordered: head CT no contrast Impression EXAM: CT Head Without Intravenous Contrast CLINICAL HISTORY: TRAUMA TECHNIQUE: Axial computed tomography images of the head/brain without intravenous contrast. Coronal images were obtained and reviewed. CTDI is 70 mGy and DLP is 1281 mGy-cm. One or more of the following dose reduction techniques were used: automated exposure control, adjustment of the mA and/or kV according to patient size, use of iterative reconstruction technique. COMPARISON: No relevant prior studies available. FINDINGS: Brain: Mild periventricular and subcortical white matter hypodensities. No evidence of acute intracranial hemorrhage. No mass effect or midline shift. Ventricles: Unremarkable. No ventriculomegaly. Bones/joints: Unremarkable. No acute fracture. Soft tissues: Unremarkable. Sinuses: Unremarkable as visualized. No acute sinusitis. Mastoid air cells: Unremarkable as visualized. No mastoid effusion. Vascular: Atherosclerotic calcifications of bilateral vertebral arteries and bilateral cavernous portions of the ICAs. IMPRESSION: 1. No acute intracranial findings. 2. Mild periventricular and subcortical white matter hypodensities, likely related to chronic small vessel disease changes. Last Vital Signs Date Time Temp Pulse Resp B/P (MAP) Pulse Ox O2 Delivery O2 Flow Rate FiO2 02/01/19 12:11 98.2 86 16 160/81 96 Room Air Disposition: HOME, SELF-CARE Condition: Stable Scripts Ibuprofen* (MOTRIN*) 600 Mg Tablet 600 MG ORAL Q8H PRN for For Pain, #15 TAB 0 Refills Prov: Coni Ross 02/01/19 Nitrofurantoin Monohyd/M-Cryst* (MACROBID 100 MG*) 100 Mg Capsule 100 MG ORAL EVERY 12 HOURS for 7 Days, #14 CAP Prov: Coni Ross 02/01/19 Patient Instructions: Acute Urinary Retention, Female, [id number], General Headache Without Cause, Hallucinogen Use Disorder-MDMA Additional Instructions: With a primary care provider for proper management of her blood pressure and sugar avoid using drugs Coni Ross Feb 01, 2019 12:26
[2019-02-01 13:08] LABS: APPEARANCE,URINE CLEAR; BILIRUBIN, URINE NEGATIVE (NEGATIVE); COLOR,URINE PALE YELLOW; GLUCOSE, URINE (UA) 2+ (NEGATIVE); KETONES,URINE NEGATIVE (NEGATIVE); LEUKOCYTE ESTERASE ,URINE 3+ (NEGATIVE); NITRITE,URINE NEGATIVE (NEGATIVE); PH,URINE 6 (4.5-8.0); PROTEIN,URINE 1+ (NEGATIVE); UROBILINOGEN,URINE NORMAL MG/DL (0.0-1.0)
[2019-02-01 13:16] LABS: EOSINOPHILS % (AUTO) 1.1 % (0.0-3.0); HEMATOCRIT 42.4 % (37.0-47.0); HEMOGLOBIN 14.4 G/DL (12.0-16.0); LYMPHOCYTES % (AUTO) 27.8 % (20.0-45.0); MEAN CORPUSCULAR VOLUME 93 FL (80-99); MONOCYTES % (AUTO) 6.6 % (1.0-10.0); NEUTROPHILS % (AUTO) 63.6 % (45.0-75.0); PLATELET COUNT 243 K/UL (150-450); RED BLOOD COUNT 4.58 M/UL (4.20-5.40); RED CELL DISTRIBUTION WIDTH 11.8 % (11.6-14.8); WHITE BLOOD COUNT 9.1 K/UL (4.8-10.8)
--- NOTE | 2019-02-01 13:44 | Diagnostic Imaging Report ---
EXAM: CT Head Without Intravenous Contrast CLINICAL HISTORY: TRAUMA TECHNIQUE: Axial computed tomography images of the head/brain without intravenous contrast. Coronal images were obtained and reviewed. CTDI is 70 mGy and DLP is 1281 mGy-cm. One or more of the following dose reduction techniques were used: automated exposure control, adjustment of the mA and/or kV according to patient size, use of iterative reconstruction technique. COMPARISON: No relevant prior studies available. FINDINGS: Brain: Mild periventricular and subcortical white matter hypodensities. No evidence of acute intracranial hemorrhage. No mass effect or midline shift. Ventricles: Unremarkable. No ventriculomegaly. Bones/joints: Unremarkable. No acute fracture. Soft tissues: Unremarkable. Sinuses: Unremarkable as visualized. No acute sinusitis. Mastoid air cells: Unremarkable as visualized. No mastoid effusion. Vascular: Atherosclerotic calcifications of bilateral vertebral arteries and bilateral cavernous portions of the ICAs. IMPRESSION: 1. No acute intracranial findings. 2. Mild periventricular and subcortical white matter hypodensities, likely related to chronic small vessel disease changes.
[2019-02-01] MEDS ORDERED: IBUPROFEN600 MG ORAL (14:15)
[2019-02-01] MEDS ORDERED: NITROFURANTOIN100 M2 ORAL (14:15)
[2019-02-01 14:29] VITALS: BP 147/90
[2019-02-01 14:30] VITALS: BP 147/90
--- NOTE | 2019-02-06 01:11 | Cardiology Report ---
APPROVED REPORT EKG Measurement Heart [id number] Normal sinus rhythm Normal ECG
[2019-04-21] MEDS ORDERED: TYLENOL EXTRA500 MG ORAL ×2 (15:07)
[2019-05-29] MEDS ORDERED: POTASSIUM CHLO20 ME3 PO (12:57)
== END 2019-02-01 14:34 | disposition home or self-care (01) ==
LOC: EMR 12:34
DX: F16.20 Hallucinogen dependence, uncomplicated (principal); I10 Essential (primary) hypertension; N39.0 Urinary tract infection, site not specified; E11.9 Type 2 diabetes mellitus without complications; Z88.6 Allergy status to analgesic agent; Z88.0 Allergy status to penicillin; E78.5 Hyperlipidemia, unspecified; Z79.84 Long term (current) use of oral hypoglycemic drugs; R07.9 Chest pain, unspecified
CPT/HCPCS: 36415; 70450; 80307; 81001; 82962; 85025; 93005; 99284

== ENCOUNTER 2019-03-17 22:29 | Emergency (ER) | payer MEDICARE, MEDICAID ==
[~2019-03-17] VITALS: Ht 170.2 cm; Wt 81.6 kg
[~2019-03-17 22:29] MED LIST changes: +IBUPROFEN600 MG ORAL; +NITROFURANTOIN100 M2 ORAL
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
[2019-03-17] MEDS ORDERED: OMEPRAZOLE10 M1 ORAL (22:39)
[2019-03-17] MEDS ORDERED: LOSARTAN POTASS25 MG ORAL (22:39)
[2019-03-17] MEDS ORDERED: TRULICITY1.5 MG/0.5 SQ (22:39)
[2019-03-17] MEDS ORDERED: IBUPROFEN600 MG ORAL (23:32)
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
[2019-03-17 23:35] VITALS: BP 161/90
[2019-03-17 23:45] VITALS: BP 152/88
--- NOTE | 2019-03-17 23:45 | NUR ---
ER DISCHARGE NOTE: Patient is cleared to be discharged per ERMD, pt is aox4, on room air, with stable vital signs. pt was given dc and prescription instructions, pt was able to verbalize understanding, pt id band removed without complications. pt is able to ambulate with steady gait. pt took all belongings.
--- NOTE | 2019-03-18 11:37 | Diagnostic Imaging Report ---
Indication: Chest pain Comparison: 12/09/2006 A single view chest radiograph was obtained. Findings: Cardiomediastinal appearance is within normal limits for age. The lungs are clear. Pulmonary vascularity is appropriate. The diaphragmatic contour is smooth and costophrenic angles are sharp. No pleural effusions are identified. The bones are unremarkable. Impression: No acute findings
== END 2019-03-17 23:45 | disposition home or self-care (01) ==
LOC: EMR 22:55
DX: S20.212A Contusion of left front wall of thorax, initial encounter (principal); I10 Essential (primary) hypertension; V43.52XA Car driver injured in collision with other type car in traffic accident, initial encounter; Y92.410 Unspecified street and highway as the place of occurrence of the external cause; E11.9 Type 2 diabetes mellitus without complications; Z88.6 Allergy status to analgesic agent; Z88.0 Allergy status to penicillin; M54.9 Dorsalgia, unspecified
CPT/HCPCS: 71045; 99283

== ENCOUNTER 2019-04-03 20:42 | Emergency (ER) | payer MEDICARE, MEDICAID ==
[~2019-04-03] VITALS: Ht 170.2 cm; Wt 80.7 kg
[~2019-04-03 20:42] MED LIST changes: +LOSARTAN POTASS25 MG ORAL; +OMEPRAZOLE10 M1 ORAL; +TRULICITY1.5 MG/0.5 SQ
--- NOTE | 2019-04-03 21:05 | NUR ---
ED Nurse Note: RECIEVED PT FROM HOME WITH C/O LEFT SHOULDER AND UPPER NECK AND BACK AREA AT 7/10 FOR PAST 2 DAYS S/P FALL IN SHOWER, DENIES SYNCOPAL OR LOC, ALSO DENIES ANY OTHER INJURIES.
[2019-04-03] MEDS ORDERED: Methocarbamol 750mg tab ORAL ONE (21:15)
[2019-04-03 22:45] VITALS: BP 134/78
[2019-04-03] MEDS ORDERED: LIDODERM700 M1 TOPIC (22:52)
[2019-04-03] MEDS ORDERED: ROBAXIN-750750 MG PO (22:52)
[2019-04-03] MEDS ORDERED: IBUPROFEN800 MG ORAL (22:52)
[2019-04-03 23:00] VITALS: BP 134/78
--- NOTE | 2019-04-04 03:33 | Emergency Room Report ---
History of Present Illness General Chief Complaint: General Complaint Source: Patient Present Illness HPI 68-year-old female presents ED for evaluation. Patient walked in complaining of back pain status post fall. States she had a mechanical trip and fall in the bathroom 2 days ago. Landed on her back. Denies hitting her head or LOC. Complaining of back pain. Pain is dull, 8 out of 10 localized to upper back. Denies chest pain or shortness of breath. Denies any abdominal pain. No other aggravating relieving factors. Denies any other associated symptoms Allergies: Coded Allergies: AMOXICILLIN (Unverified Allergy, Unknown, 02/01/19) CODEINE (Verified Allergy, Unknown, 02/01/19) Patient History Past Medical History: none, DM, HTN Past Surgical History: none Pertinent Family History: none Social History: Denies: smoking, alcohol use, drug use Last Menstrual Period: n/a Now: No Immunizations: UTD Reviewed Nursing Documentation: PMH: Agreed; PSxH: Agreed Nursing Documentation-PMH Hx Cardiac Problems: Yes Hx Hypertension: Yes Hx COPD: Yes - bronchitis Hx Diabetes: Yes Hx Cancer: No Hx Gastrointestinal Problems: No Hx Neurological Problems: No Review of Systems All Other Systems: negative except mentioned in HPI Physical Exam Vital Signs Date Time Temp Pulse Resp B/P (MAP) Pulse Ox O2 Delivery O2 Flow Rate FiO2 04/03/19 20:47 98.1 79 18 141/85 (103) 97 Room Air Sp02 EP Interpretation: reviewed, normal General Appearance: no apparent distress, alert, GCS 15, non-toxic Head: normocephalic Eyes: bilateral eye normal inspection, bilateral eye PERRL ENT: normal ENT inspection Neck: full range of motion, no bony tend, supple/symm/no masses Respiratory: chest non-tender, lungs clear, normal breath sounds, speaking full sentences Cardiovascular #1: regular rate, rhythm, no edema Gastrointestinal: normal bowel sounds, non tender, soft, non-distended, no guarding, no rebound Rectal: deferred Genitourinary: no CVA tenderness, vertebral tenderness Musculoskeletal: tender - upper thoracic Neurologic: alert, oriented x3, responsive, motor strength/tone normal, sensory intact, speech normal Psychiatric: normal inspection Skin: normal inspection Lymphatic: normal inspection Medical Decision Making Diagnostic Impression: Primary Impression: Fall Qualified Codes: W19.XXXA - Unspecified fall, initial encounter Additional Impression: Back pain Qualified Codes: M54.6 - Pain in thoracic spine ER Course Hospital Course 68-year-old F presents to ED complaining of upper back pain s/p trip and fall Differential diagnoses include: Fracture, dislocation, sprain, contusion Clinical course Patient placed on stretcher. After initial history and physical, I ordered pain medications and Xrays of Tspine Xrays prelim read shows no acute fracture/dislocation. Discussed findings with patient. On reassessment pain improved. Safe for discharge with close outpatient follow-up. States she has a PMD Diagnosis - fall, back pain Stable and discharged to home with prescription for Motrin, lidoderm, robaxin. weight bear as tolerated. Followup with PMD. Return to ED if symptoms recur or worsen Other X-Ray Diagnostic Results Other X-Ray Diagnostic Results : X-Ray ordered: Tspine # of Views/Limited Vs Complete: 2 View Indication: Pain EP Interpretation: Yes Interpretation: no dislocation, no soft tissue swelling, no fractures Impression: No acute disease Electronically Signed by: Electronically signed by Galindo Valdez MD Last Vital Signs Date Time Temp Pulse Resp B/P (MAP) Pulse Ox O2 Delivery O2 Flow Rate FiO2 04/03/19 23:00 98.3 71 18 134/78 99 Room Air Status: improved Disposition: HOME, SELF-CARE Condition: Stable Scripts Lidocaine (Lidoderm) 1 Each Adh..patch 1 PATCH TOPIC DAILY, #7 PATCH 0 Refills Patch(es) may remain in place for up to 12 hours in any 24-hour period. Prov: Galindo Valdez MD 04/03/19 Methocarbamol* (ROBAXIN-750*) 750 Mg Tablet 750 MG PO TID, #21 TAB 0 Refills Prov: Galindo Valdez MD 04/03/19 Ibuprofen* (MOTRIN*) 800 Mg Tablet 800 MG ORAL Q8H for 5 Days, #30 TAB 0 Refills Prov: Galindo Valdez MD 04/03/19 Referrals: NON PHYSICIAN (PCP) Henrry Velázquez [facility]. [facility] Patient Instructions: Back Pain, Adult, [id number] Galindo Valdez MD Apr 04, 2019 03:33
--- NOTE | 2019-04-04 08:08 | Diagnostic Imaging Report ---
. Indication: Back pain status post injury Technique: 3 views of the thoracic spine Comparison: None Findings: Bone mineralization within normal limits. There is minimal curvature/scoliosis of the thoracic spine which may potentially be positional. Mild degenerative changes are noted with some disc space narrowing and mild productive changes. Vertebral body heights are maintained; no evidence of compression fracture. No additional acute fractures appreciated radiographically. Imaged portions of the lung are clear. Heart size within normal limits. There are some atherosclerotic calcifications of the arch. No radiopaque foreign body. Impression: No evidence of acute fracture or traumatic malalignment. Mild degenerative changes of the thoracic spine. Minimal scoliosis.
== END 2019-04-03 23:00 | disposition home or self-care (01) ==
LOC: EMR 21:32
DX: M54.6 Pain in thoracic spine (principal); W01.0XXA Fall on same level from slipping, tripping and stumbling without subsequent striking against object, initial encounter; Y92.002 Bathroom of unspecified non-institutional (private) residence as the place of occurrence of the external cause; Z88.6 Allergy status to analgesic agent; Z88.0 Allergy status to penicillin; E11.9 Type 2 diabetes mellitus without complications; I10 Essential (primary) hypertension; J44.9 Chronic obstructive pulmonary disease, unspecified
CPT/HCPCS: 72070; 99283

== ENCOUNTER 2019-04-21 13:11 | Emergency (ER) | payer MEDICARE, MEDICAID ==
[~2019-04-21] VITALS: Ht 170.2 cm; Wt 72.6 kg
[~2019-04-21 13:11] MED LIST changes: +IBUPROFEN800 MG ORAL; +LIDODERM700 M1 TOPIC; +ROBAXIN-750750 MG PO
[2019-04-21 13:26] VITALS: BP 166/76
--- NOTE | 2019-04-21 13:30 | NUR ---
ED Nurse Note: Patient walked into ED from home c/o hitting her right side of her head 1 week ago as she was standing up from a bending down position. patient denies any LOC patient is alert awake x4 ambulatory, breathing unlabored and even.
--- NOTE | 2019-04-21 13:55 | NUR ---
ED Nurse Note: patient went to CT in stable condition
--- NOTE | 2019-04-21 14:33 | Diagnostic Imaging Report ---
Indications: Headache Technique: Spiral acquisitions obtained through the brain. Angled axial and coronal 5 x 5 mm slices were reconstructed. Total dose length product 1326.82 mGycm. CTDI vol(s) 70.38 mGy. Dose reduction achieved using automated exposure control Comparison: 02/01/2019 Findings: No acute hemorrhage or edema, mass effect, nor midline shift. Normal size ventricles and extra axial CSF spaces. Areas of low-attenuation are seen in the deep white matter bilaterally, consistent with chronic ischemic changes. Otherwise normal casanova-white differentiation. Visualized orbits and sinuses are unremarkable. The mastoids are clear. The calvarium is intact Impression: Negative for acute intracranial bleed or mass effect Areas of deep white matter low-attenuation consistent with chronic microvascular ischemic changes The CT scanner at [facility] is accredited by the [employer] and the scans are performed using protocols designed to limit radiation exposure to as low as reasonably achievable to attain images of sufficient resolution adequate for diagnostic evaluation.
--- NOTE | 2019-04-21 14:53 | Emergency Room Report ---
History of Present Illness General Chief Complaint: Headache Source: Patient Present Illness HPI 68-year-old female presents to the emergency department complaining of 10 out of 10 severity right-sided headache status post hitting her head on the corner of her dresser 1 week ago. Denies having a LOC. She denies vomiting reports nausea. She denies taking blood thinning medications. She reports progressive tight pressure WARD. denies visual changes or weakness. pt. is concerned for intracranial injury. She reports no relief with Motrin. Denies open wounds or bleeding. Denies difficulty with speech, memory or word recall. Denies any other symptoms or aggravating factors. Allergies: Coded Allergies: AMOXICILLIN (Unverified Allergy, Unknown, 02/01/19) CODEINE (Verified Allergy, Unknown, 02/01/19) Patient History Past Medical History: see triage record Past Surgical History: none Pertinent Family History: none Now: No Reviewed Nursing Documentation: PMH: Agreed; PSxH: Agreed Nursing Documentation-PMH Past Medical History: No History, Except For Hx Cardiac Problems: Yes Hx Hypertension: Yes Hx COPD: Yes - bronchitis Hx Diabetes: Yes Hx Cancer: No Hx Gastrointestinal Problems: No Hx Neurological Problems: No Review of Systems All Other Systems: negative except mentioned in HPI Physical Exam Vital Signs Date Time Temp Pulse Resp B/P (MAP) Pulse Ox O2 Delivery O2 Flow Rate FiO2 04/21/19 13:26 98.2 88 21 166/76 95 Room Air Sp02 EP Interpretation: reviewed, normal General Appearance: alert, GCS 15, non-toxic, mild distress Head: normocephalic, other - TTP to the right forehead/ temporal area, faint bruise noted. no hematoma, no swelling. Eyes: bilateral eye normal inspection, bilateral eye PERRL ENT: hearing grossly normal, normal voice Neck: full range of motion, no bony tend Respiratory: chest non-tender, lungs clear, normal breath sounds, speaking full sentences Cardiovascular #1: regular rate, rhythm Musculoskeletal: back normal, gait/station normal, normal range of motion, non- tender Neurologic: alert, oriented x3, responsive, motor strength/tone normal, sensory intact, normal gait, speech normal, facial droop, other - equal jig fitter strength, negative rhomberg., grossly normal Psychiatric: judgement/insight normal Skin: other - TTP to the right forehead/ temporal area, faint bruise noted. no hematoma, no swelling. Medical Decision Making PA Attestation Dr. Morris is my supervising Physician whom patient management has been discussed with. Diagnostic Impression: Primary Impression: Contusion of head Qualified Codes: S00.83XA - Contusion of other part of head, initial encounter Additional Impression: Headache Qualified Codes: R51 - Headache ER Course 68-year-old female presents to the emergency department complaining of 10 out of 10 severity right-sided headache status post hitting her head on the corner of her dresser 1 week ago. Denies having a LOC. She denies vomiting reports nausea. She denies taking blood thinning medications. She reports progressive tight pressure WARD. denies visual changes or weakness. pt. is concerned for intracranial injury. She reports no relief with Motrin. Denies open wounds or bleeding. Denies difficulty with speech, memory or word recall. Denies any other symptoms or aggravating factors. Ddx considered but are not limited to Fracture, dislocation, contusion, concussion Sprain/Strain/Spasm, hematoma Vital signs: are WNL, pt. is afebrile H&PE are most consistent with contusion, no evidence of focal neurological deficit, no loss of consciousness. ORDERS: CT Head No contrast ED INTERVENTIONS: - Reglan PO -Fioricet PO --Upon re-assessment pt. reports WARD resolved with ED interventions . DISCHARGE: At this time pt. is stable for d/c to home. Will provide printed patient care instructions, and any necessary prescriptions. Care plan and follow up instructions have been discussed with the patient prior to discharge. CT/MRI/US Diagnostic Results CT/MRI/US Diagnostic Results : Imaging Test Ordered: CT HEad no Contrast Impression " No evidence of acute fracture, hemorrhage, or intracranial process" --per official radiology report- Please see report for specific details. Last Vital Signs Date Time Temp Pulse Resp B/P (MAP) Pulse Ox O2 Delivery O2 Flow Rate FiO2 04/21/19 13:26 98.2 88 21 166/76 (106) 95 Room Air Disposition: HOME, SELF-CARE Condition: Stable Scripts Acetaminophen* (TYLENOL EXTRA STRENGTH*) 500 Mg Tablet 500 MG ORAL Q6H, #20 TAB 0 Refills Prov: Brooke Mendoza 04/21/19 Referrals: Michael Linares MD (PCP) Patient Instructions: Contusion, [id number], Facial or Scalp Contusion Additional Instructions: Take medications as directed. Follow up with a Primary Care Provider in 3-5 days For a referral to have NEUROLOGIST Evaluation, even if your symptoms have resolved. --Please review list of primary care clinics, if you do not already have a primary care provider Return sooner to ED if new symptoms occur, or current symptoms become worse. - Please note that this Emergency Department Report was dictated using [employer]audio director technology software, occasionally this can lead to erroneous entry secondary to interpretation by the dictation equipment. Brooke Mendoza Apr 21, 2019 14:53
[2019-04-21] MEDS ORDERED: TYLENOL EXTRA500 MG ORAL (15:07)
[2019-04-21 15:22] VITALS: BP 166/76
--- NOTE | 2019-04-21 15:22 | NUR ---
ER DISCHARGE NOTE: Patient is cleared to be discharged per LUCIANA POLLOCK pt is aox4, on room air, with stable vital signs. pt was given dc and prescription instructions, pt was able to verbalize understanding, pt id band removed without complications. pt is able to ambulate with steady gait. pt took all belongings.
== END 2019-04-21 15:25 | disposition home or self-care (01) ==
LOC: EMR 13:59
DX: S00.83XA Contusion of other part of head, initial encounter (principal); R51 Headache; J40 Bronchitis, not specified as acute or chronic; E11.9 Type 2 diabetes mellitus without complications; W22.8XXA Striking against or struck by other objects, initial encounter; Y93.9 Activity, unspecified; Y92.9 Unspecified place or not applicable; Z88.1 Allergy status to other antibiotic agents; Z88.5 Allergy status to narcotic agent
CPT/HCPCS: 70450; 99284

== ENCOUNTER 2019-05-18 03:38 | Emergency (ER) | payer MEDICARE, MEDICAID ==
[~2019-05-18] VITALS: Ht 170.2 cm; Wt 49.9 kg
[~2019-05-18 03:38] MED LIST changes: +TYLENOL EXTRA500 MG ORAL
[2019-05-18 03:55] VITALS: BP 119/80
--- NOTE | 2019-05-18 03:55 | NUR ---
ED Nurse Note: Patient walked in to ER c/o right arm pain 05/17. Stated that was here at [facility] couple weeks ago and cast was applyed. After she visited her PMD, he took it off. AAO x 3, VSS at this time, patient appear with swollen right arm.
[2019-05-18] MEDS ORDERED: CEPHALEXIN500 MG ORAL (04:13)
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
[2019-05-18 04:19] VITALS: BP 119/80
--- NOTE | 2019-05-18 04:20 | NUR ---
ED Nurse Note: Pt cleared by health care Provider for discharge. DC instructions/prescription was given and explained to pt and verbalized understanding of teachings. All medical deviecs such as ID band removed. Pt is AAO x4, ambulatory and left with all personal belongings.
== END 2019-05-18 04:20 | disposition home or self-care (01) ==
LOC: EMR 04:14
DX: S69.91XA Unspecified injury of right wrist, hand and finger(s), initial encounter (principal); T23.022A Burn of unspecified degree of single left finger (nail) except thumb, initial encounter; T79.9XXA Unspecified early complication of trauma, initial encounter; X08.8XXA Exposure to other specified smoke, fire and flames, initial encounter; Y93.9 Activity, unspecified; Y92.9 Unspecified place or not applicable; F17.200 Nicotine dependence, unspecified, uncomplicated; E78.00 Pure hypercholesterolemia, unspecified; J44.9 Chronic obstructive pulmonary disease, unspecified; E11.9 Type 2 diabetes mellitus without complications; F19.10 Other psychoactive substance abuse, uncomplicated
CPT/HCPCS: 29125; 99282

== ENCOUNTER 2019-05-30 07:58 | Day surgery (SDC) | payer MEDICARE, MEDICAID ==
--- NOTE | 2019-05-27 15:45 | Pre-op HX & Phy Repo 2 SIG ---
DATE OF ADMISSION: 05/30/2019 HISTORY OF PRESENT ILLNESS: The patient is a very pleasant 68-year-old female with history of hypertension, diabetes, history of gastric surgery for weight loss, who apparently fell and broke her right arm and is scheduled for surgery by Dr. Paris. The patient presented to my office for preop evaluation. She denies any headaches. No sore throat. Denies any chest pain or shortness of breath. Denies any fevers or chills. No abdominal pain. No urinary symptoms. PAST MEDICAL HISTORY: Includes a history of hypertension, history of diabetes, and history of hyperlipidemia. PAST SURGICAL HISTORY: She has had a history of gastric sleeve surgery on 02/20/2018 in [place]. She has had a history of bunionectomy, tonsillectomy, hysterectomy due to fibroids at the age of 48, history of D and C, history of pelvic fracture in 2018, and history previously broken wrist as well. ALLERGIES: Allergic to amoxicillin and codeine. MEDICATIONS: Medications she is on include metformin, Trulicity, simvastatin, Protonix, tramadol, and Tylenol as needed. The patient has not been compliant with her diabetes medications and blood pressure medications. SOCIAL HISTORY: She moved here from [place] in August 2018. She does not smoke. Does not drink any alcohol or use any drugs. REVIEW OF SYSTEMS: A 12-point review of systems reviewed and is negative except for above. PHYSICAL EXAMINATION: GENERAL: She is well developed, well nourished, currently in no apparent distress. VITAL SIGNS: Revealed a blood pressure of 140/80, pulse 82, and respirations 18. She is afebrile. HEENT: Head is normocephalic and atraumatic. Pupils are equal and reactive to light. Extraocular muscles are intact. Eyes are anicteric. NECK: Supple. No JVP. No bruits. No lymphadenopathy. LUNGS: Clear to auscultation bilaterally. HEART: Regular rate and rhythm without murmurs, rubs, or gallops. ABDOMEN: Soft. Positive bowel sounds. Nondistended. Nontender. EXTREMITIES: No clubbing, cyanosis, or edema. Right arm is in a splint. Neurovascularly intact. PSYCHIATRIC: Normal mood and affect. ASSESSMENT AND PLAN: The patient is a pleasant 68-year-old female, who presents to my office for preoperative clearance for proposed surgery. Preoperative labs including CBC, CMP, PT, PTT, chest x-ray, and EKG have been performed. The patient was noted to have a potassium of 3. This is prior to her taking her blood pressure medications. She was given a supplement of potassium to take and labs were drawn today to check her potassium. Her glucose was 238. She states she was not compliant in taking her metformin or Trulicity. Emphasized compliance with the patient. The patient was told not to take any aspirin products a week prior to her surgery. Pending her labs, she is cleared for her proposed procedure. Thank you for allowing me to participate in the care of the patient. Michael Linares M.D. DR: SARAH BETH JOB#: [id number] CC:
[2019-05-30] VITALS (11 sets, daily range): BP systolic 128–158; BP diastolic 50–85
[~2019-05-30] VITALS: Ht 172.1 cm; Wt 80.7 kg
--- NOTE | 2019-05-30 07:43 | Operative Note - PDOC ---
Operative Note Operative Note Pre-op Diagnosis: right wrist fracture Procedure: see op report Post-op Diagnosis: same as pre-op plus Anesthesia: MAC Specimen: none Complications: none Condition: stable Estimated Blood Loss: none Implant(s) used?: Yes Akil Paris MD May 30, 2019 07:43
--- NOTE | 2019-05-30 07:43 | Pre-Procedure Note/Attestation ---
Pre-Procedure Note/Attestation Complete Prior to Procedure Planned Procedure: right Procedure Narrative: wrist orif Indications for Procedure Pre-Operative Diagnosis: right wrist fracture Attestation I attest that I discussed the nature of the procedure; its benefits; risks and complications; and alternatives (and the risks and benefits of such alternatives ), prior to the procedure, with the patient (or the patient's legal novelties sales representative). I attest that, if there was a reasonable possibility of needing a blood transfusion, the patient (or the patient's legal novelties sales representative) was given the [facility] standardized written summary, pursuant to the Rylan Dyllan Blood Safety Act ([place] Health and Safety Code # 1645, as amended). I attest that I re-evaluated the patient just prior to the surgery and that there has been no change in the patient's H&P, except as documented below: Akil Paris MD May 30, 2019 07:43
[~2019-05-30 07:58] MED LIST changes: +CEPHALEXIN500 MG ORAL; +Clindamycin 600mg/D5W 50ml IV ONE; +D5 1/2NS 1,000 ML IV SCH; +HYDROcodone/Acetamin 5/325 tab ORAL PRN; +HYDROmorphone 1mg/ml Carpuject SUBQ PRN; +POTASSIUM CHLO20 ME3 PO; +Tylenol #3 tab (300mg/30mg) ORAL PRN; +celeBREX 200mg Cap **SURGERY PATIENTS ONLY ORAL ONE; +oxyCONTIN 20mg tab ORAL ONE
[2019-05-30] MEDS ORDERED: TRAMADOL HCL50 MG ORAL (08:43)
[2019-05-30] MEDS ORDERED: oxyCONTIN 20mg tab ORAL ONE (09:04)
[2019-05-30] MEDS ORDERED: celeBREX 200mg Cap **SURGERY PATIENTS ONLY ORAL ONE (09:04)
[2019-05-30] MEDS ORDERED: NeoSporin Gu Irrig 1ml Amp IRRIG ONE (10:16)
[2019-05-30] MEDS ORDERED: Bupivacaine 0.5% Inj 30 ml vial INJ ONE (10:16)
[2019-05-30] MEDS ORDERED: Bacitracin 50000 Units Vial ONE (10:16)
[2019-05-30] MEDS ORDERED: fentaNYL 100 mcg/2 mL IV ONE ×2 (10:29→12:40)
[2019-05-30] MEDS ORDERED: Sterile Water Irrig 1000ml IRRIG ONE (10:30)
[2019-05-30] MEDS ORDERED: LR 1000ml ONE (10:30)
[2019-05-30] MEDS ORDERED: Bupivacaine 0.25% Inj 30ml INJ ONE (10:30)
[2019-05-30] MEDS ORDERED: NS Irrig 1000ml IRRIG ONE (10:45)
[2019-05-30] MEDS ORDERED: Propofol 200mg/20ml IV ONE (11:21)
[2019-05-30] MEDS ORDERED: Lidocaine 1% MPF 10mg/ml 5ml ONE (11:21)
[2019-05-30] MEDS ORDERED: Ketorolac 30mg Inj ONE (11:35)
--- NOTE | 2019-05-30 12:41 | Anethesia Preoperative Eval ---
Anesthesia Pre-op PMH/ROS General Date of Evaluation: May 30, 2019 Time of Evaluation: 10:00 ASA Score: ASA 2 Mallampati Score Class I : Soft palate, uvula, fauces, pillars visible Class II: Soft palate, uvula, fauces visible Class III: Soft palate, base of uvula visible Class IV: Only hard plate visible Mallampati Classification: Class II Allergies: Coded Allergies: CODEINE (Verified Allergy, Severe, 05/29/19) ITCHING AMOXICILLIN (Unverified Adverse Reaction, Intermediate, 05/29/19) DIARRHEA Patient NPO?: Yes Anesthesia Pre-op Phys. Exam Physician Exam Last Vital Signs Date Time Temp Pulse Resp B/P (MAP) Pulse Ox O2 Delivery O2 Flow Rate FiO2 05/30/19 09:08 Room Air 05/30/19 09:00 97.0 67 20 128/69 67 Airway Exam Mallampati Score: Class II Anesthesia Pre-op A/P Labs Chemistry Test 05/30/19 08:50 Potassium Level 3.5 MMOL/L (3.5-5.1) Marva Gordon MD May 30, 2019 12:41
--- NOTE | 2019-05-30 12:42 | Immediate Post-Op Evaluation ---
Immediate Post-Op Evalulation Immediate Post-Op Evalulation Procedure: orif right wrist Date of Evaluation: May 30, 2019 Time of Evaluation: 12:42 Nausea: No Vomiting: No Marva Gordon MD May 30, 2019 12:42
[2019-05-30] MEDS ORDERED: fentaNYL 100 mcg/2 mL IV PRN (12:45)
[2019-05-30] MEDS ORDERED: Ketorolac 30mg Inj IV PRN (12:45)
[2019-05-30] MEDS ORDERED: Hydromorphone 0.5mg/0.5ml inj ONE (12:51)
[2019-05-30] MEDS ORDERED: Hydromorphone 0.5mg/0.5ml inj IVP PRN (13:00)
--- NOTE | 2019-05-30 16:45 | Operative Note - Dictated ---
DATE OF OPERATION: 05/30/2019 PREOPERATIVE DIAGNOSIS: Right three-part distal radius intraarticular fracture. POSTOPERATIVE DIAGNOSIS: Right three-part distal radius intraarticular fracture. PROCEDURE: Open reduction and internal fixation right distal radius fracture, intraarticular 3 pieces. SURGEON: Akil Paris M.D. ANESTHESIA: General. INDICATION FOR PROCEDURE: The patient is a pleasant female, who has had a displaced intraarticular distal radius fracture indicative of operative fixation. Risks, limitations, expectations, complications of procedure were discussed in detail. All questions addressed. DESCRIPTION OF PROCEDURE: After informed consent was obtained, the patient was brought to the operating room. The patient was placed under general anesthesia. Right arm was prepped and draped in a standard manner. The anterior volar approach to the distal wrist was performed. The quadratus was incised off the radial border. At this point, the fracture was reduced. The lunate fossa and the scaphoid fossa was then placed and a K-wire was then placed to recreate the articular surface. Once this was done, the distal fragments were then placed back onto the radial shaft. A wide short hand innovation plate was selected. Multiple K-wires were then placed multiple screws. Once everything was complete, the imaging study showed good reduction of the fracture fragment. Good overall positioning. The wound was copiously irrigated. The skin was closed. The splint was applied. The patient awoken and taken to recovery room with stable vital signs. ESTIMATED BLOOD LOSS: Minimal. COMPLICATIONS: None. SPECIMENS: None. IMPLANTS: Include [employer] hand innovation distal plate with multiple proximal and distal locking screws. Akil Paris M.D. DR: KATHYA JOB#: [id number] CC:
--- NOTE | 2019-05-30 17:20 | Diagnostic Imaging Report ---
INDICATION: Pain, intraoperative TECHNIQUE: Intraoperative imaging Fluoroscopy time: 26.1 seconds Total dose: [id number] mGym2 Total number of images: 4 COMPARISON: None FINDINGS: Intraoperative images document surgical repair with sideplate and screws of distal radial fracture IMPRESSION: Intraoperative imaging, as described
== END 2019-05-30 14:35 | disposition home or self-care (01) ==
LOC: SUR 07:58
DX: S52.571A Other intraarticular fracture of lower end of right radius, initial encounter for closed fracture (principal); I10 Essential (primary) hypertension; E11.9 Type 2 diabetes mellitus without complications; Z98.84 Bariatric surgery status; E78.5 Hyperlipidemia, unspecified; Z88.0 Allergy status to penicillin; Z88.6 Allergy status to analgesic agent; Z79.84 Long term (current) use of oral hypoglycemic drugs; Z79.899 Other long term (current) drug therapy; X58.XXXA Exposure to other specified factors, initial encounter; Y92.9 Unspecified place or not applicable
CPT/HCPCS: 25609; 36415; 73100; 76000; 82962; 84132; C1713; J0360; J1170; J1885; J2704; J3010; J3490; 94003; 94150

== ENCOUNTER 2019-10-06 12:20 | Inpatient (IN) | payer MEDICARE, MEDICAID ==
[~2019-10-06] VITALS: Ht 170.2 cm; Wt 63.5 kg
[~2019-10-06 12:20] MED LIST changes: -Clindamycin 600mg/D5W 50ml IV ONE; -D5 1/2NS 1,000 ML IV SCH; -HYDROcodone/Acetamin 5/325 tab ORAL PRN; -HYDROmorphone 1mg/ml Carpuject SUBQ PRN; +TRAMADOL HCL50 MG ORAL; -Tylenol #3 tab (300mg/30mg) ORAL PRN; -celeBREX 200mg Cap **SURGERY PATIENTS ONLY ORAL ONE; -oxyCONTIN 20mg tab ORAL ONE
[2019-10-06] MEDS ORDERED: LYRICA75 M1 ORAL (12:33)
[2019-10-06 12:35] VITALS: BP 164/79
--- NOTE | 2019-10-06 12:37 | NUR ---
ED Nurse Note: Pt arrived to ED with c/o RT wrist pain and chest tightness. Pt is AOx4; calm and cooperative; able to verbalize her needs and able to follow commands. Placed on bed and gown. EKG done. Will continue to monitor.
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
[2019-10-06] MEDS ORDERED: Ketorolac 30mg Inj IV ONE (13:00)
[2019-10-06] MEDS ORDERED: Albuterol ud Inhalation HHN ONE (13:00)
--- NOTE | 2019-10-06 13:05 | NUR ---
ED Nurse Note: X-ray on bedside.
--- NOTE | 2019-10-06 13:13 | NUR ---
ED Nurse Note: X-ray done.
[2019-10-06 13:37] LABS: BASOPHILS % (AUTO) 0.8 % (0.0-2.0); EOSINOPHILS % (AUTO) 2.2 % (0.0-3.0); HEMATOCRIT 43.6 % (37.0-47.0); HEMOGLOBIN 14.6 G/DL (12.0-16.0); LYMPHOCYTES % (AUTO) 38.2 % (20.0-45.0); MEAN CORPUSCULAR VOLUME 95 FL (80-99); MONOCYTES % (AUTO) 6.6 % (1.0-10.0); NEUTROPHILS % (AUTO) 52.3 % (45.0-75.0); PLATELET COUNT 300 K/UL (150-450); RED BLOOD COUNT 4.59 M/UL (4.20-5.40); RED CELL DISTRIBUTION WIDTH 10.9 % (11.6-14.8); WHITE BLOOD COUNT 8.8 K/UL (4.8-10.8)
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
[2019-10-06 13:40] LABS: APPEARANCE,URINE CLEAR; BILIRUBIN, URINE NEGATIVE (NEGATIVE); GLUCOSE, URINE (UA) NEGATIVE (NEGATIVE); KETONES,URINE 1+ (NEGATIVE); LEUKOCYTE ESTERASE ,URINE 3+ (NEGATIVE); NITRITE,URINE POSITIVE (NEGATIVE); PH,URINE 6 (4.5-8.0); PROTEIN,URINE 1+ (NEGATIVE); UROBILINOGEN,URINE 1 MG/DL (0.0-1.0)
[2019-10-06 13:50] LABS: INR 0.9 (0.9-1.1)
[2019-10-06 13:51] LABS: COLOR,URINE YELLOW
[2019-10-06 13:52] LABS: ANION GAP 9 mmol/L (5-15); BLOOD UREA NITROGEN 17 mg/dL (7-18); CALCIUM 8.7 MG/DL (8.5-10.1); CARBON DIOXIDE 28 MMOL/L (21-32); CHLORIDE 105 MMOL/L (98-107); CREATININE 0.9 MG/DL (0.55-1.30); POTASSIUM 3.2 MMOL/L (3.5-5.1); SODIUM 142 MMOL/L (136-145)
[2019-10-06 14:02] LABS: ALANINE AMINOTRANSFERASE 25 U/L (12-78); ALBUMIN/GLOBULIN RATIO 1.1 (1.0-2.7); ALKALINE PHOSPHATASE 84 U/L (46-116); ASPARTATE AMINO TRANSFERASE 17 U/L (15-37); BILIRUBIN,TOTAL 0.4 MG/DL (0.2-1.0); CREATINE KINASE 124 U/L (26-308)
--- NOTE | 2019-10-06 14:28 | Diagnostic Imaging Report ---
Indication: Chest Technique: One view of the chest Comparison: 03/17/2019 Findings: Lungs and pleural spaces are clear. Heart size is normal. Old healed left rib fracture deformity again noted Impression: No acute process
[2019-10-06] MEDS ORDERED: cefTRIAXone 1 GM in NS 55 ML IVPB ONE (14:30)
--- NOTE | 2019-10-06 14:31 | Diagnostic Imaging Report ---
Clinical Indication:Traumatic pain Technique: 3 views of the right wrist Comparison: 05/30/2019 surgery films Findings: Surgical hardware seen reducing old healed distal radial fracture. Hardware appears intact. The bones are osteoporotic. No definite acute fractures. Old screw holes are also seen in the radial shaft and in the second metatarsal shaft. There are degenerative changes of the wrist noted. Impression: Post surgical and posttraumatic changes, as described No definite acute bony trauma
--- NOTE | 2019-10-06 14:40 | NUR ---
ED Nurse Note: [employer] on bedside.
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
[2019-10-06 14:50] VITALS: BP 163/76
--- NOTE | 2019-10-06 15:35 | NUR ---
ED Nurse Note: ERMD at bedside.
[2019-10-06] MEDS ORDERED: Morphine Sulfate 2mg/ml Inj(IV/IM USE ONLY) IVP ONE (15:45)
[2019-10-06] MEDS ORDERED: Nitroglycerin 2% oint pkt TOPIC ONE (15:45)
--- NOTE | 2019-10-06 16:58 | Cardiac Electrophysiology PN ---
Subjective Subjective Patient seen in ER and DW ER [id number] Objective Last 24 Hour Vital Signs Date Time Temp Pulse Resp B/P (MAP) Pulse Ox O2 Delivery O2 Flow Rate FiO2 10/06/19 16:35 183/88 10/06/19 14:50 98.0 88 22 163/76 100 Room Air 21 10/06/19 13:41 78 18 100 Room Air 21 70 18 100 10/06/19 13:37 98.0 10/06/19 12:35 82 18 Room Air 10/06/19 12:35 98.1 80 18 164/79 91 Room Air 10/06/19 12:27 98.1 82 18 164/79 (107) 91 Room Air Laboratory Tests Test 10/06/19 13:00 White Blood Count 8.8 K/UL (4.8-10.8) Red Blood Count 4.59 M/UL (4.20-5.40) Hemoglobin 14.6 G/DL (12.0-16.0) Hematocrit 43.6 % (37.0-47.0) Mean Corpuscular Volume 95 FL (80-99) Mean Corpuscular Hemoglobin 31.8 PG (27.0-31.0) H Mean Corpuscular Hemoglobin Concent 33.5 G/DL (32.0-36.0) Red Cell Distribution Width 10.9 % (11.6-14.8) L Platelet Count 300 K/UL (150-450) Mean Platelet Volume 7.3 FL (6.5-10.1) Neutrophils (%) (Auto) 52.3 % (45.0-75.0) Lymphocytes (%) (Auto) 38.2 % (20.0-45.0) Monocytes (%) (Auto) 6.6 % (1.0-10.0) Eosinophils (%) (Auto) 2.2 % (0.0-3.0) Basophils (%) (Auto) 0.8 % (0.0-2.0) Prothrombin Time 9.9 SEC (9.30-11.50) Prothromb Time International Ratio 0.9 (0.9-1.1) Activated Partial Thromboplast Time 25 SEC (23-33) Urine Color Yellow Urine Appearance Clear Urine pH 6 (4.5-8.0) Urine Specific [place] 1.025 (1.005-1.035) Urine Protein 1+ (NEGATIVE) H Urine Glucose (UA) Negative (NEGATIVE) Urine Ketones 1+ (NEGATIVE) H Urine Blood 1+ (NEGATIVE) H Urine Nitrite Positive (NEGATIVE) H Urine Bilirubin Negative (NEGATIVE) Urine Urobilinogen 1 MG/DL (0.0-1.0) H Urine Leukocyte Esterase 3+ (NEGATIVE) H Urine RBC 2-4 /HPF (0 - 2) H Urine WBC 5-10 /HPF (0 - 2) H Urine Squamous Epithelial Cells Few /LPF (NONE/OCC) Urine Calcium Oxalate Crystals Moderate /LPF (NONE) Urine Bacteria Moderate /HPF (NONE) H Sodium Level 142 MMOL/L (136-145) Potassium Level 3.2 MMOL/L (3.5-5.1) L Chloride Level 105 MMOL/L (98-107) Carbon Dioxide Level 28 MMOL/L (21-32) Anion Gap 9 mmol/L (5-15) Blood Urea Nitrogen 17 mg/dL (7-18) Creatinine 0.9 MG/DL (0.55-1.30) Estimat Glomerular Filtration Rate > 60 mL/min (>60) Glucose Level 157 MG/DL (74-106) H Calcium Level 8.7 MG/DL (8.5-10.1) Total Bilirubin 0.4 MG/DL (0.2-1.0) Aspartate Amino Transf (AST/SGOT) 17 U/L (15-37) Alanine Aminotransferase (ALT/SGPT) 25 U/L (12-78) Alkaline Phosphatase 84 U/L (46-116) Total Creatine Kinase 124 U/L (26-308) Troponin I 0.000 ng/mL (0.000-0.056) Pro-B-Type Natriuretic Peptide 240 pg/mL (0-125) H Total Protein 7.5 G/DL (6.4-8.2) Albumin 4.0 G/DL (3.4-5.0) Globulin 3.5 g/dL Albumin/Globulin Ratio 1.1 (1.0-2.7) Lipase 373 U/L (73-393) Urine Opiates Screen Negative (NEGATIVE) Urine Barbiturates Screen Negative (NEGATIVE) Phencyclidine (PCP) Screen Positive (NEGATIVE) H Urine Amphetamines Screen Negative (NEGATIVE) Urine Benzodiazepines Screen Negative (NEGATIVE) Urine Cocaine Screen Negative (NEGATIVE) Urine Marijuana (THC) Screen Positive (NEGATIVE) H Antoni Schultz MD Oct 06, 2019 16:58
[2019-10-06] MEDS ORDERED: Lexiscan 0.4mg/5ml syringe IV PRN (17:15)
[2019-10-06] MEDS ORDERED: Albuterol/Ipratropium 3ml neb HHN PRN (17:30)
--- NOTE | 2019-10-06 18:50 | NUR ---
TRANSFER TO FLOOR: Patient transferred to as ordered, per Dr. Helms. Report given to PATRICA Lee. Belongings and medications given to receiving nurse. Family and or S/O informed of transfer.
--- NOTE | 2019-10-06 19:44 | NUR ---
NURSE NOTES: Pt received from Jesus RN alert and oriented x4 with no acute s/s of distress at this time. IV site asymptoamtic and patent on L fa 20g, saline lock. Bed in lowest position, call light and belongings within reach.
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
[2019-10-06 20:00] VITALS: BP 150/90
[2019-10-06] MEDS: Enoxaparin 40mg Inj SUBQ SCH (20:00)
[2019-10-06] MEDS: NovoLOG Insulin Flexpen SUBQ SCH (21:00)
--- NOTE | 2019-10-06 21:45 | NUR ---
NURSE NOTES: Spoke with Forensic Nurse Odessa Potts who provided recommended antibiotics and dosages for STI prevention - Rocephin 250 mg IM x1 and Zithromax 1gm x1. Left message for Dr. Helms's office for confirmation.
[2019-10-06] MEDS ORDERED: Azithromycin 250mg tab ORAL SCH (22:00)
[2019-10-06] MEDS ORDERED: Guaifenesin/DM 10ml syrup ORAL PRN (22:00)
--- NOTE | 2019-10-06 22:00 | NUR ---
NURSE NOTES: Received callback from Dr. Mark Reyes who agreed with Forensic Nurse antibiotic recommendations and ordered the following: - (Pt requested cough medication) Robitussin 10 ml q4h for cough - (Pt requested pain med for wrist) [place] 5/325 q4h for pain - Give Potassium 40 mEq PO x1 for Potassium of 3.2 - Continue losartan, lyrica, and simvastatin but hold metformin for now.
[2019-10-06] MEDS: HYDROcodone/Acetamin 5/325 tab ORAL PRN (23:38)
[2019-10-06] MEDS: Lisinopril 10mg tab ORAL SCH (23:38)
[2019-10-07] VITALS: BP 146/76
[2019-10-07] MEDS ORDERED: Lidocaine 1% Plain 30 ml INJ ONE (00:45)
[2019-10-07 04:00] VITALS: BP 148/75
[2019-10-07] MEDS: HYDROcodone/Acetamin 5/325 tab ORAL PRN ×3 (05:57→17:40)
[2019-10-07 06:00] LABS: CHOLESTEROL 200 MG/DL (< 200); HDL CHOLESTEROL 60 MG/DL (40-60); TRIGLYCERIDES 58 MG/DL (30-150)
[2019-10-07] MEDS: NovoLOG Insulin Flexpen SUBQ SCH ×4 (06:30→20:10)
--- NOTE | 2019-10-07 07:10 | NUR ---
HAND-OFF: Report given to PATRICA Lee. Plan of care endorsed.
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
[2019-10-07 08:00] VITALS: BP 149/88
[2019-10-07] MEDS: Lisinopril 10mg tab ORAL SCH ×2 (09:00→21:00)
[2019-10-07] MEDS: Losartan 50mg tab ORAL SCH (09:25)
[2019-10-07] MEDS: Lyrica 75mg cap ORAL SCH (09:27)
[2019-10-07 12:00] VITALS: BP 144/85
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
--- NOTE | 2019-10-07 14:35 | Diagnostic Imaging Report ---
Indications: Chest pain Technique: Single day single isotope protocol utilized. Initially, resting images obtained using IV administration 11 millicuries 99M technetium Myoview. Subsequently, patient underwent lexiscan stress testing. See cardiology report for details. During Lexiscan infusion, IV administration 32.9 mCi 99 M technetium Myoview. SPECT and planar images obtained. SPECT images gated to 8 phases of the cardiac cycle were also obtained, and reformatted into cine images for evaluation of ejection fraction. Comparison: none Findings: Per cardiology report, patient experienced no chest pain. Per cardiology report, resting EKG demonstrates sinus bradycardia. Cardiology report indicates that no significant ST-T-wave changes were noted during infusion. Imaging demonstrates normal poststress perfusion. No fixed nor reversible perfusion defects are demonstrated. Normal cardiac chamber size. Calculated post stress ejection fraction 67%. No focal wall motion abnormality Impression: Nonischemic clinical response to pharmacologic stress, per cardiology report Nonischemic electrocardiographic response to pharmacologic stress, per cardiology report No imaging findings to suggest ischemia, at level of stress achieved. Calculated post stress ejection fraction 67%
--- NOTE | 2019-10-07 14:40 | NUR ---
CASE MANAGEMENT: INITIAL REVIEW 69YR OLD FEMALE FROM HOME CC: CHEST PAIN; WRIST PAIN SI: UTI . CHEST PAIN . SUBSTANCE ABUSE . 98.0 82 18 164/79 91% ON RA K+3.2 BG 157 BNP 240 IS:IV ROCEPHIN X1 ASA PO X1 IV TORADOL X1 PROVENTIL HHN X1 WRIST XRAY CHEST XRAY \: 2E TELE UNIT DCP: HOME WHEN MEDICALLY STABLE PLAN: STRESS TEST
[2019-10-07 16:00] VITALS: BP 153/75
[2019-10-07 20:00] VITALS: BP 133/74
[2019-10-07] MEDS: Enoxaparin 40mg Inj SUBQ SCH (20:00)
[2019-10-07] MEDS: Atorvastatin 80mg tab ORAL SCH (21:01)
[2019-10-08 04:00] VITALS: BP 115/70
[2019-10-08] MEDS: NovoLOG Insulin Flexpen SUBQ SCH ×4 (06:30→20:26)
[2019-10-08] MEDS: HYDROcodone/Acetamin 5/325 tab ORAL PRN ×3 (06:52→20:20)
--- NOTE | 2019-10-08 07:28 | NUR ---
NURSE NOTES: Nurse report given by PATRICA Becker. Patient's in stable condition, ambulates, AO x 4, denies pain, denies chest pain. shift production supervisor is on, IV is intact, patent and asymptomatic. Bed low and locked, call light within reach, side rails x 2. Will continue to monitor.
[2019-10-08 08:00] VITALS: BP 146/89
[2019-10-08] MEDS: Lisinopril 10mg tab ORAL SCH (09:00)
--- NOTE | 2019-10-08 09:00 | NUR ---
NURSE NOTES: Patient refused her Lisinopril medication at 0900. Patient stated: " my blood pressure is fine. It's normal. I will just take my regular Losartan and Lyrica, not Lisinopril." Nurse explained that Lisinopril is for her blood pressure and her 0800 blood pressure is 146/89. Patient still refused. Returned Lisinopril back to [facility].
[2019-10-08] MEDS: Losartan 50mg tab ORAL SCH (09:09)
[2019-10-08] MEDS: Lyrica 75mg cap ORAL SCH (09:10)
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
[2019-10-08 12:00] VITALS: BP 157/81
[2019-10-08 16:00] VITALS: BP 122/80
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
--- NOTE | 2019-10-08 19:38 | NUR ---
HAND-OFF: Report given to Linda/PATRICA Mcrae. Patient's stable, plan of care endorsed.
[2019-10-08 20:00] VITALS: BP_SYST 118; BP_SYST 132; BP_SYST 137; BP_DIAS 67; BP_DIAS 81
[2019-10-08] MEDS: Enoxaparin 40mg Inj SUBQ SCH (20:00)
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
[2019-10-08] MEDS: Atorvastatin 80mg tab ORAL SCH (20:19)
[2019-10-09] VITALS: BP 105/66
--- NOTE | 2019-10-09 02:43 | NUR ---
NURSE NOTES: RESTING WELL ON ROUNDS. NAD.
[2019-10-09] MEDS: HYDROcodone/Acetamin 5/325 tab ORAL PRN ×2 (03:24→21:08)
[2019-10-09 04:00] VITALS: BP 124/55
[2019-10-09] MEDS: NovoLOG Insulin Flexpen SUBQ SCH ×4 (06:01→21:02)
--- NOTE | 2019-10-09 06:46 | NUR ---
NURSE NOTES: OBSERVATION SINCE ADMISSION; TELEPHONE CALL PLACED TO MD REGARDING OBSERVATION STATUS, LEFT MESSAGE WITH RECRUITMENT SPECIALIST, VILMA, REGARDING UPDATE ON STATUS OR DISCHARGE ORDER, WILL AWAIT RETURN CALL.
--- NOTE | 2019-10-09 07:20 | NUR ---
NURSE NOTES: Received report from PATRICA Carrasquillo. The patient is resting on the bed without acute distress or shortness of breath. The patient's bed in the lowest position, call light in reach, and fall and aspiration precaution reinforced. IV site intact and patent. Clarification will be made with Dr. Joy regarding admit order. Will continue plan of care.
--- NOTE | 2019-10-09 07:23 | NUR ---
HAND-OFF: Report given to Mynor MARIANO RN.
[2019-10-09 08:00] VITALS: BP 124/64
[2019-10-09] MEDS: Losartan 50mg tab ORAL SCH (08:56)
[2019-10-09] MEDS: Lyrica 75mg cap ORAL SCH (08:57)
--- NOTE | 2019-10-09 09:00 | NUR ---
NURSE NOTES: Clarification made regarding admit order. Dr. Joy ordered admit as inpatient and transfer the patient to med/surg. Will continue plan of care until the bed gets available.
[2019-10-09 11:30] VITALS: BP 143/77
--- NOTE | 2019-10-09 12:52 | NUR ---
TRANSFER TO FLOOR: The patient got transferred to [facility] in safe manner. Comprehensive report given to PATRICA Smith who is a receiving nurse. The patient is stable without acute distress or shortness of breath. The patient's bed in the lowest position, call light in reach, and fall and aspiration precaution reinforced. IV site intact and patent. Endorsed plan of care.
--- NOTE | 2019-10-09 12:55 | NUR ---
NURSE NOTES: patient transferred from Telemetry unit to [facility] under tracy Squires. received report from PATRICA purdy. patient alert.oriented. verbally responsive. no respiratory distress noted on room air. no pain at this time. discomfort on rt hand d/t chronic OA. IV on LFA 20 g hep lock intact. belongs counted with patient. bed in the lowest position and locked. call light within reach. will provide plan of care.
[2019-10-09] MEDS ORDERED: Guaifenesin/DM 10ml syrup ORAL PRN (13:09)
[2019-10-09] MEDS ORDERED: Albuterol/Ipratropium 3ml neb HHN PRN (13:09)
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
[2019-10-09 16:00] VITALS: BP 135/72
--- NOTE | 2019-10-09 16:15 | NUR ---
NURSE NOTES: seen by Dr. Schultz. no new order at this time.
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
--- NOTE | 2019-10-09 19:19 | NUR ---
HAND-OFF: Report given to PATRICA Mccann.
--- NOTE | 2019-10-09 19:30 | NUR ---
NURSE NOTES: RECEIVED PT. FROM PATRICA VALENZUELA. PT IS AWAKE, AAOX4, ON ROOM AIR, DENIES PAIN AT THE MOMENT. NO ACUTE DISTRESS NOTED. IV ON L FA IS INTACT AND PATENT. BED IS LOCKED AND LOW, BED ALARMS ACTIVE, SIDE RAILS UPX2 AND CALL LIGHT IS WITHIN REACH. WILL CONTINUE TO MONITOR.
[2019-10-09 20:00] VITALS: BP 116/66
[2019-10-09] MEDS ORDERED: Enoxaparin 40mg Inj SUBQ SCH (20:00)
[2019-10-09] MEDS ORDERED: Atorvastatin 80mg tab ORAL SCH (21:00)
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
[2019-10-10] VITALS: BP 111/66
[2019-10-10 04:00] VITALS: BP 137/82
[2019-10-10] MEDS: NovoLOG Insulin Flexpen SUBQ SCH ×3 (06:41→17:00)
--- NOTE | 2019-10-10 07:41 | NUR ---
HAND-OFF: Report given to PATRICA BLANC.
[2019-10-10] MEDS: HYDROcodone/Acetamin 5/325 tab ORAL PRN ×2 (07:48→13:55)
--- NOTE | 2019-10-10 07:50 | NUR ---
NURSE NOTES: AWKE/ALERT. C/O PAIN.RT WrIST PAin scale 10/10. given norco 5/10 po. will monitor pt.
[2019-10-10 08:00] VITALS: BP 138/80
[2019-10-10] MEDS ORDERED: Losartan 50mg tab ORAL SCH (09:00)
[2019-10-10] MEDS ORDERED: Lyrica 75mg cap ORAL SCH (09:00)
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
[2019-10-10 12:00] VITALS: BP 135/70
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
[2019-10-10 16:00] VITALS: BP 136/71
--- NOTE | 2019-10-10 16:30 | NUR ---
NURSE NOTES: PT VERBALIZE SHE DONT WANT TO LEAVE TODAY. STATES SHE DONT KNOW WHERE TO GO AND IS SCARED TO [facility]. EXPLAINED TO PT SHE WAS GIVEN LIST OF HOTELS WHERE SHE PAY AND STAY. OCCUPATIONAL ANALYST RASHAD TALKED TO PT THAT SHE IS FOR DISCHARGE. PT CALLED HER SISTER (KRISTEN WAHL) AND WILL STAY WITH HER.
--- NOTE | 2019-10-10 17:15 | NUR ---
NURSING ICE GUARD SKATING RINK NOTE: Phone call from Case Management (Linda) regarding patient discharge. Per Linda, primary RN is verbalizing that she doesn't feel confident that this is a safe discharge. Called and spoke to primary RN, Meme. She states that patient told her "I don't know where I will go when I leave here, and I am scared". Meme would like to confirm with Dr. Joy primary to discharge. Reviewed Social Service Note from today and [employer] documented that patient was provided with a list of hotels and that her d/c plan is to pay for a hotel upon d/c from hospital. Spoke to Refugio, Charge Nurse and call will be placed to Dr. Joy prior to d/c regarding above
[2019-10-10 17:50] VITALS: BP 136/71
--- NOTE | 2019-10-10 18:35 | NUR ---
NURSE NOTES: DISCHARGED VIA WHEELCHAIR IN STABLE CONDITION. DC INSTRUCTIONS GIVEN. PT TALKED TO HER SISTER (KRISTEN WAHL AND SHE WILL STAYING WITH HER ON DISCHARGE.
== END 2019-10-10 18:35 | disposition home or self-care (01) | DRG 305 ==
LOC: EMR 13:20 → 2E 13:29 → EDBEDREQ 18:21 → 2E 20:38 → OBSVTOIN 10-09 08:33 → 3E 10-09 13:05
DX: I16.0 Hypertensive urgency (principal); T74.11XA Adult physical abuse, confirmed, initial encounter; F16.20 Hallucinogen dependence, uncomplicated; R07.9 Chest pain, unspecified; J44.9 Chronic obstructive pulmonary disease, unspecified; E11.9 Type 2 diabetes mellitus without complications; Z72.0 Tobacco use; F12.90 Cannabis use, unspecified, uncomplicated
CPT/HCPCS: 36415; 71045; 78452; 80053; 80061; 80307; 81003; 82550; 82962; 83036; 83690; 83880; 84484; 85025; 85610; 85730; 87086; 87181; 93005; 93017; 93306; 96365; 96375; 99285; J1815; J2785; J7030; J8499

== ENCOUNTER 2019-12-29 23:37 | Emergency (ER) | payer MEDICARE, MEDICAID ==
[~2019-12-29] VITALS: Ht 170.2 cm; Wt 73.5 kg
[~2019-12-29 23:37] MED LIST changes: +LYRICA75 M1 ORAL
[2019-12-30 00:07] VITALS: BP 145/93
--- NOTE | 2019-12-30 00:08 | NUR ---
ER Nurse Note: Pt walked in c/o cough without sputum, short of breath, body aches since over one month. Pt stated cough has worsened. Pt hx of smoking. Denies fever, recent travels. Surgical mask placed. Will continue to monitor.
--- NOTE | 2019-12-30 00:45 | Emergency Room Report ---
History of Present Illness General Chief Complaint: Flu Like Symptoms Source: Patient Present Illness HPI Disclaimer: Please note that this report is being documented using iPowow[employer] technology. This can lead to erroneous entry secondary to incorrect interpretation by the dictating instrument. HPI: 69-year-old female history of bronchitis presents for evaluation of cough. She states her cough is been present approximately 5 months. She said she had a bout of bronchitis in August 2019. She was treated several times with antibiotics. She is complaining of chest congestion, persistent cough but denies any chest pain, back pain, fever, chills. She reports nasal congestion and intermittent sore throat. Also notes ear pain at night. Denies ear drainage. Saw her PMD in November. Denies any recent travel. No known sick contacts. States she has been washing her hands and isolating according to CDC recommendations. PMH: Bronchitis, tobacco use, diabetes PSH: Reviewed Allergies: Amoxicillin, codeine Social Hx: Tobacco use COVID-19 risk:Contact w/high r: No COVID-19 risk:Travel to affect: No Has patient experienced harrell: Yes Coronavirus symptoms experienc: Cough, Runny Nose, Flu-Like Symptoms Allergies: Coded Allergies: CODEINE (Verified Allergy, Severe, 05/29/19) ITCHING AMOXICILLIN (Unverified Adverse Reaction, Intermediate, 05/29/19) DIARRHEA Patient History Last Menstrual Period: na Now: No : 5 Para: 3 Nursing Documentation-PMH Hx Cardiac Problems: Yes Hx Hypertension: Yes Hx COPD: Yes - bronchitis Hx Diabetes: Yes Hx Cancer: No Hx Gastrointestinal Problems: No Hx Neurological Problems: No Review of Systems All Other Systems: negative except mentioned in HPI Physical Exam Vital Signs Date Time Temp Pulse Resp B/P (MAP) Pulse Ox O2 Delivery O2 Flow Rate FiO2 12/29/19 23:43 98.1 85 17 145/93 (110) 95 Room Air General: Awake and alert, no acute distress HEENT: NC/AT. EOMI. PERRLA. Tympanic membranes are pearly casanova, nonbulging, clear landmarks and no effusions. Uvula is midline. No pharyngeal edema, erythema or exudate. No cervical lymphadenopathy Cardiovascular: RRR. S1 and S2 normal. No murmur appreciated Resp: Normal work of breathing. No cough, wheezing or crackles appreciated Skin: Intact. No abrasions, laceration or rash over the exposed skin MSK: Normal tone and bulk. Moving all extremities. No obvious deformity. Neuro: Awake and alert. Mentating appropriately. Medical Decision Making Diagnostic Impression: Primary Impression: Cough ER Course 69-year-old female presents for evaluation of several months persistent cough and upper respiratory symptoms. She is already been treated with cough medication as well as few course of antibiotics by her PMD. Denies any recent fever, chest pain, shortness of breath. Chest x-ray was obtained does not show acute infiltrate. Given the long duration of symptoms and multiple course of antibiotics likely a chronic cough. Will refill albuterol inhaler and discharged on guaifenesin. And follow-up with her PMD. Understands reasons to return to the emergency department. Will be discharged home Chest X-Ray Diagnostic Results Chest X-Ray Diagnostic Results : Chest X-Ray Ordered: Yes # of Views/Limited/Complete: 1 View Indication: Other - Cough EP Interpretation: Yes Interpretation: no consolidation, no effusion, no acute cardiopulmonary disease Impression: No acute disease Electronically Signed by: Electronically signed by Dr. Gustavo Loera Last Vital Signs Date Time Temp Pulse Resp B/P (MAP) Pulse Ox O2 Delivery O2 Flow Rate FiO2 12/30/19 00:07 98.1 80 17 145/93 95 Room Air Disposition: HOME, SELF-CARE Condition: Stable Scripts Albuterol Sulfate* (ALBUTEROL SULFATE MDI*) 8.5 Gm Hfa.aer.ad 2 PUFF INH Q4H PRN for cough/wheezing, #1 EA 0 Refills Prov: Gustavo Loera MD 12/30/19 Guaifenesin/Dextromethorphan* (Guaifenesin Dm Syrup*) 5 Ml Syrup 5 ML ORAL Q6H PRN for FOR COUGH, #118 ML Prov: Gustavo Loera MD 12/30/19 Referrals: Michael Linares MD (PCP) Gustavo Loera MD Dec 30, 2019 00:45
[2019-12-30] MEDS ORDERED: ALBUTEROL SULF8.5 GM INH (01:19)
[2019-12-30] MEDS ORDERED: GUAIFENESIN DM118 M1 ORAL (01:19)
[2019-12-30 01:30] VITALS: BP 138/88
--- NOTE | 2019-12-30 01:30 | NUR ---
ED Nurse Note: Pt cleared by health care Provider for discharge. DC instructions/prescription was given and explained to pt and verbalized understanding of teachings. Instructed pt to follow up with primary care physcian when needed. Educated pt on social distancing and staying indoors. All medical deviecs such as ID band removed. Pt is AAO x4, ambulatory and left with all personal belongings.
--- NOTE | 2019-12-30 12:13 | Diagnostic Imaging Report ---
Indication: Dyspnea Comparison: 10/06/2019 A single view chest radiograph was obtained. Findings: Cardiomediastinal appearance is within normal limits for age. The lungs are clear. Pulmonary vascularity is appropriate. The diaphragmatic contour is smooth and costophrenic angles are sharp. No pleural effusions are identified. The bones are unremarkable. Impression: No acute findings
== END 2019-12-30 01:30 | disposition home or self-care (01) ==
LOC: EMR 12-30 00:15
DX: R05 Cough (principal); I10 Essential (primary) hypertension; E11.9 Type 2 diabetes mellitus without complications; J44.9 Chronic obstructive pulmonary disease, unspecified; H92.09 Otalgia, unspecified ear; Z88.0 Allergy status to penicillin; Z88.6 Allergy status to analgesic agent
CPT/HCPCS: 71045; 99283

== ENCOUNTER 2020-03-30 22:32 | Emergency (ER) | payer MEDICARE, MEDICAID ==
[~2020-03-30] VITALS: Ht 170.2 cm; Wt 73.9 kg
[~2020-03-30 22:32] MED LIST changes: +ALBUTEROL SULF8.5 GM INH; +GUAIFENESIN DM118 M1 ORAL
[2020-03-30 22:52] VITALS: BP 155/90
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
[2020-03-30 23:40] VITALS: BP 155/90
== END 2020-03-30 23:40 | disposition home or self-care (01) ==
LOC: EMR 23:25
DX: S43.402A Unspecified sprain of left shoulder joint, initial encounter (principal); S20.211D Contusion of right front wall of thorax, subsequent encounter; W19.XXXD Unspecified fall, subsequent encounter; F16.90 Hallucinogen use, unspecified, uncomplicated; Z76.5 Malingerer [conscious simulation]; E78.5 Hyperlipidemia, unspecified; I10 Essential (primary) hypertension; E11.9 Type 2 diabetes mellitus without complications; Z87.891 Personal history of nicotine dependence
CPT/HCPCS: 99282